=== PATIENT | male | born 1935 | race Caucasian/White ===

== ENCOUNTER 2017-07-26 13:52 | Inpatient (IN) | payer OTHER ==
[~2017-07-26] VITALS: Ht 185.4 cm; Wt 93.9 kg
[2017-07-26 13:52] VITALS: BP_SYST 130
[2017-07-26] MEDS ORDERED: NACL 0.9% 1,000 ML IV ONE (14:15)
[2017-07-26 14:25] LABS: BASOPHILS # (AUTO) 0.1 K/uL (0.0-0.2); BASOPHILS % (AUTO) 0.9 % (0.0-2.0); EOSINOPHILS # (AUTO) 0.1 K/uL (0.0-0.4); EOSINOPHILS % (AUTO) 1.8 % (0.0-4.0); HEMATOCRIT 45.1 % (36-54); HEMOGLOBIN 15.3 g/dL (14.0-18.0); LYMPHOCYTES # (AUTO) 1.7 K/uL (1.0-5.5); LYMPHOCYTES % (AUTO) 21.2 % (20.5-51.5); MEAN CORPUSCULAR HEMOGLOBIN 31 pg (27-31); MEAN CORPUSCULAR HGB CONC 34 % (32-36); MEAN CORPUSCULAR VOLUME 90 fL (79.0-98.0); MONOCYTES # (AUTO) 0.6 K/uL (0.0-1.0); MONOCYTES % (AUTO) 7.8 % (1.7-9.3); NEUTROPHILS # (AUTO) 5.7 K/uL (1.8-7.7); NEUTROPHILS % (AUTO) 68.3 % (40.0-70.0); PLATELET COUNT (AUTO) 335 K/uL (130-430); RED BLOOD CELL COUNT(AUTO) 4.99 MIL/uL (4.2-6.2); RED CELL DISTRIBUTION WIDTH 12.6 % (9.0-15.0); WHITE BLOOD COUNT (AUTO) 8.2 K/uL (4.8-10.8)
[2017-07-26 14:41] LABS: ANION GAP 9 (5-15); CALCIUM 8.9 mg/dL (8.4-11.0); CHLORIDE 100 mmol/L (98-107); CREATININE 1.77 mg/dL (0.55-1.30); GLUCOSE 105 mg/dL (70-99); POTASSIUM 3.8 mmol/L (3.5-5.1); SODIUM SERUM 135 mmol/L (136-145); UREA NITROGEN, BLOOD 13 mg/dL (8-21)
[2017-07-26 14:44] LABS: BILIRUBIN,URINE NEGATIVE (NEGATIVE); BLOOD, URINE NEGATIVE (NEGATIVE); CLARITY/URINE CLEAR (CLEAR); COLOR,URINE YELLOW (YELLOW); GLUCOSE,URINE NEGATIVE (NEGATIVE); KETONES,URINE NEGATIVE (NEGATIVE); LEUKOCYTE ESTERASE ,URINE NEGATIVE (NEGATIVE); NITRITE, URINE NEGATIVE (NEGATIVE); PROTEIN URINE TRACE (NEGATIVE); UROBILINOGEN,URINE 0.2 (0.2-1.0)
[2017-07-26 14:45] LABS: ALANINE AMINOTRANSFERASE 16 U/L (12-78); ALBUMIN 3.7 g/dL (3.4-4.8); ASPARTATE AMINOTRANSFERASE 25 U/L (10-37); LIPASE 128 U/L (73-393)
[2017-07-26 14:58] LABS: PROTHROMBIN TIME 9.8 SECS (9.5-12.5)
[2017-07-26] MEDS ORDERED: TAMS-11 PO (15:00)
[2017-07-26] MEDS ORDERED: LORA-259 PO (15:00)
[2017-07-26] MEDS ORDERED: LANS15CA5 PO (15:00)
[2017-07-26] MEDS ORDERED: PRAV20TA59 PO (15:00)
[2017-07-26] MEDS ORDERED: IBUP-1969 PO (15:00)
[2017-07-26] MEDS ORDERED: LEVO150T PO (15:00)
[2017-07-26] MEDS ORDERED: FINA5TAB3 PO (15:00)
[2017-07-26] MEDS ORDERED: ATEN100T44 PO (15:00)
[2017-07-26] MEDS ORDERED: BUSP10TA3 PO (15:00)
[2017-07-26 15:17] LABS: BACTERIA,URINE RARE /HPF (None Seen); MUCUS,URINE 1+ /LPF (None Seen); RBC,URINE NONE SEEN /HPF (0-3); WBC,URINE 0-3 /HPF (0-3)
[2017-07-26] MEDS ORDERED: ONDANSETRON HCL 4 MG/2 ML VIAL IVP ONE (15:30)
[2017-07-26] MEDS ORDERED: MORPHINE 4 MG/ML INJ. SYRINGE IVP ONE (15:30)
[2017-07-26] MEDS ORDERED: HEPARIN SODIUM,PORCINE 5000 UNITS/ML VIAL IVP ONE (16:00)
[2017-07-26 16:31] VITALS: BP_SYST 151
[2017-07-26] MEDS ORDERED: ENOXAPARIN SODIUM 60 MG/0.6 ML SYRINGE SUBCUT ONE (18:30)
[2017-07-26] MEDS ORDERED: THIAMINE HCL 100 MG TABLET PO ONE (18:30)
[2017-07-26] MEDS ORDERED: FOLIC ACID 1 MG TABLET PO ONE (18:30)
[2017-07-26 20:00] VITALS: BP_SYST 139
[2017-07-26] MEDS: PANTOPRAZOLE GRANULES PACKET 40 MG GT SCH (20:55)
[2017-07-26] MEDS: LORazepam 1 MG TABLET PO SCH (20:55)
[2017-07-26] MEDS ORDERED: SIMVASTATIN 10 MG TABLET PO SCH (21:00)
[2017-07-26 23:45] VITALS: BP_SYST 140
[2017-07-27 06:13] LABS: BASOPHILS # (AUTO) 0.1 K/uL (0.0-0.2); BASOPHILS % (AUTO) 0.9 % (0.0-2.0); EOSINOPHILS # (AUTO) 0.2 K/uL (0.0-0.4); EOSINOPHILS % (AUTO) 3.4 % (0.0-4.0); HEMATOCRIT 39.2 % (36-54); HEMOGLOBIN 13.4 g/dL (14.0-18.0); LYMPHOCYTES % (AUTO) 34.9 % (20.5-51.5); MEAN CORPUSCULAR HEMOGLOBIN 31 pg (27-31); MEAN CORPUSCULAR HGB CONC 34 % (32-36); MEAN CORPUSCULAR VOLUME 90 fL (79.0-98.0); MONOCYTES # (AUTO) 0.5 K/uL (0.0-1.0); MONOCYTES % (AUTO) 8.2 % (1.7-9.3); NEUTROPHILS # (AUTO) 2.9 K/uL (1.8-7.7); NEUTROPHILS % (AUTO) 52.6 % (40.0-70.0); PLATELET COUNT (AUTO) 246 K/uL (130-430); RED BLOOD CELL COUNT(AUTO) 4.34 MIL/uL (4.2-6.2); RED CELL DISTRIBUTION WIDTH 12.4 % (9.0-15.0); WHITE BLOOD COUNT (AUTO) 5.7 K/uL (4.8-10.8)
[2017-07-27 06:45] LABS: ALANINE AMINOTRANSFERASE 13 U/L (12-78); ALBUMIN 2.9 g/dL (3.4-4.8); ANION GAP 8 (5-15); ASPARTATE AMINOTRANSFERASE 22 U/L (10-37); CALCIUM 8.3 mg/dL (8.4-11.0); CHLORIDE 103 mmol/L (98-107); CHOLESTEROL 123 mg/dL (<200); CREATININE 1.67 mg/dL (0.55-1.30); GLUCOSE 78 mg/dL (70-99); HDL CHOLESTEROL 44 mg/dL (>45); LDL CHOLESTEROL 65 mg/dL (<100); LIPASE 102 U/L (73-393); POTASSIUM 3.3 mmol/L (3.5-5.1); SODIUM SERUM 137 mmol/L (136-145); THYROID STIMULATING HORMONE 8.35 uIu/mL (0.34-4.82); TOTAL BILIRUBIN 0.9 mg/dL (0.0-1.0); TRIGLYCERIDES 122 mg/dL (30-150); UREA NITROGEN, BLOOD 14 mg/dL (8-21)
[2017-07-27] MEDS ORDERED: LEVOTHYROXINE SODIUM 0.15 MG TABLET PO SCH (07:00)
[2017-07-27] MEDS ORDERED: NACL 0.9% 1,000 ML IV SCH (08:00)
[2017-07-27] MEDS ORDERED: POTASSIUM CHLORIDE 20 MEQ TAB.PRT.SR PO ONE (08:00)
[2017-07-27 08:01] VITALS: BP_SYST 134
[2017-07-27] MEDS: LORazepam 1 MG TABLET PO SCH (08:47)
[2017-07-27] MEDS: PANTOPRAZOLE GRANULES PACKET 40 MG GT SCH (08:48)
[2017-07-27] MEDS ORDERED: PRAVASTATIN SODIUM 20 MG TABLET (PRAVACHOL) PO SCH (09:00)
[2017-07-27] MEDS ORDERED: FINASTERIDE 5 MG TABLET (PROSCAR) PO SCH (09:00)
[2017-07-27] MEDS ORDERED: ASPIRIN 81 MG TAB.CHEW PO SCH (09:00)
[2017-07-27] MEDS ORDERED: FOLIC ACID 1 MG TABLET PO SCH (09:00)
[2017-07-27] MEDS ORDERED: busPIRone HCL 5 MG TABLET PO SCH (09:00)
[2017-07-27] MEDS ORDERED: ATENOLOL 50 MG TABLET (TENORMIN) PO SCH (09:00)
[2017-07-27] MEDS ORDERED: THIAMINE HCL 100 MG TABLET PO SCH (09:00)
[2017-07-27] MEDS ORDERED: TAMSULOSIN HCL 0.4 MG CAP PO SCH (09:00)
[2017-07-27 11:22] VITALS: BP_SYST 134
[2017-07-27 12:00] VITALS: BP_SYST 116
== END 2017-07-27 12:13 | disposition short-term general hospital (02) | DRG 280 ==
LOC: SED 13:52 → STU 15:44
PROVIDERS: ADMIT Internal Medicine Hospice and Palliative Medicine; ATTEND Internal Medicine Hospice and Palliative Medicine
DX: I21.4 Non-ST elevation (NSTEMI) myocardial infarction (principal); I50.21 Acute systolic (congestive) heart failure; N18.4 Chronic kidney disease, stage 4 (severe); N17.9 Acute kidney failure, unspecified; E87.1 Hypo-osmolality and hyponatremia; I13.0 Hypertensive heart and chronic kidney disease with heart failure and stage 1 through stage 4 chronic kidney disease, or unspecified chronic kidney disease; N28.1 Cyst of kidney, acquired; K29.70 Gastritis, unspecified, without bleeding; E03.9 Hypothyroidism, unspecified; E78.5 Hyperlipidemia, unspecified; F10.20 Alcohol dependence, uncomplicated; F17.200 Nicotine dependence, unspecified, uncomplicated; I71.4 Abdominal aortic aneurysm, without rupture; N40.0 Benign prostatic hyperplasia without lower urinary tract symptoms; K59.00 Constipation, unspecified; Y90.9 Presence of alcohol in blood, level not specified; K21.9 Gastro-esophageal reflux disease without esophagitis; Z90.89 Acquired absence of other organs; Z86.73 Personal history of transient ischemic attack (TIA), and cerebral infarction without residual deficits; Z79.899 Other long term (current) drug therapy
CPT/HCPCS: 36415; 71045; 80053; 80061; 81000-TC; 83690-TC; 83880; 84443-TC; 84484; 85025; 85610-TC; 85730-TC; 93005; 93306; 96361; 96374; 96375; 99285; J1644; J1650; J2270; J2405; J7030

== ENCOUNTER 2019-01-04 11:18 | Inpatient (IN) | payer OTHER ==
[~2019-01-04] VITALS: Ht 188 cm; Wt 86.6 kg
[2019-01-04 11:18] VITALS: BP_SYST 101
[~2019-01-04 11:18] MED LIST: ATEN-168 PO; BUSP10TA3 PO; FINA5TAB3 PO; LANS15CA14 PO; LEVO150T PO; LORA-259 PO; PRAV20TA59 PO; TAMS-11 PO
[2019-01-04] MEDS ORDERED: NACL 0.9% 1,000 ML IV ONE (12:00)
[2019-01-04] MEDS ORDERED: IPRATROPIUM/ALBUTEROL SULFATE 3 ML AMPUL.NEB (DUONEB) INH ONE ×2 (12:00→14:00)
[2019-01-04 12:16] LABS: BASOPHILS % (AUTO) 0.3 % (0.0-2.0); EOSINOPHILS % (AUTO) 0.3 % (0.0-4.0); HEMATOCRIT 42.5 % (36-54); HEMOGLOBIN 14.3 g/dL (14.0-18.0); LYMPHOCYTES # (AUTO) 0.4 K/uL (1.0-5.5); LYMPHOCYTES % (AUTO) 4.6 % (20.5-51.5); MEAN CORPUSCULAR HEMOGLOBIN 28 pg (27-31); MEAN CORPUSCULAR HGB CONC 34 % (32-36); MEAN CORPUSCULAR VOLUME 84 fL (79.0-98.0); MONOCYTES # (AUTO) 0.6 K/uL (0.0-1.0); MONOCYTES % (AUTO) 6.3 % (1.7-9.3); NEUTROPHILS # (AUTO) 8.5 K/uL (1.8-7.7); NEUTROPHILS % (AUTO) 88.5 % (40.0-70.0); PLATELET COUNT (AUTO) 373 K/uL (130-430); RED BLOOD CELL COUNT(AUTO) 5.04 MIL/uL (4.2-6.2); RED CELL DISTRIBUTION WIDTH 15.2 % (9.0-15.0); WHITE BLOOD COUNT (AUTO) 9.6 K/uL (4.8-10.8)
[2019-01-04 12:31] LABS: ANION GAP 8 (5-15); CALCIUM 8.2 mg/dL (8.4-11.0); CHLORIDE 102 mmol/L (98-107); GLUCOSE 111 mg/dL (70-99); PROTHROMBIN TIME 10.5 SECS (9.5-12.5); SODIUM SERUM 131 mmol/L (136-145); UREA NITROGEN, BLOOD 20 mg/dL (8-21)
[2019-01-04 12:36] LABS: ALANINE AMINOTRANSFERASE 18 U/L (12-78); ALBUMIN 2.9 g/dL (3.4-4.8); ASPARTATE AMINOTRANSFERASE 22 U/L (10-37); POTASSIUM 4.2 mmol/L (3.5-5.1); TOTAL BILIRUBIN 0.9 mg/dL (0.0-1.0)
[2019-01-04] MEDS ORDERED: PREDNISONE 20 MG TABLET PO ONE (14:30)
[2019-01-04] MEDS ORDERED: CLOP75TA32 PO (16:26)
[2019-01-04] MEDS ORDERED: LISI10TA5 PO (16:26)
[2019-01-04] MEDS ORDERED: ALBU8.5H8 INH (16:26)
[2019-01-04] MEDS ORDERED: LIP40 PO (16:26)
[2019-01-04] MEDS ORDERED: VENL37.55 PO (16:26)
[2019-01-04] MEDS ORDERED: IPRATROPIUM/ALBUTEROL SULFATE 3 ML AMPUL.NEB (DUONEB) INH PRN (16:45)
[2019-01-04 17:26] VITALS: BP_SYST 163
[2019-01-04] MEDS ORDERED: FLU VACC TS2019(65UP)/MF59C/PF 45 MCG/0.5 ML SYRINGE I.M. PRN (17:45)
[2019-01-04 17:56] VITALS: BP_SYST 163
[2019-01-04] MEDS ORDERED: cloNIDine HCL 0.1 MG TABLET ONE (19:09)
[2019-01-04] MEDS: cloNIDine HCL 0.1 MG TABLET PO PRN (19:52)
[2019-01-04 21:02] VITALS: BP_SYST 106
[2019-01-04] MEDS: methylPREDNISolone SOD SUCC 40 MG/ML VIAL IVP SCH (22:31)
[2019-01-04] MEDS: IPRATROPIUM/ALBUTEROL SULFATE 3 ML AMPUL.NEB (DUONEB) INH SCH (23:55)
[2019-01-05 00:18] VITALS: BP_SYST 124
[2019-01-05] MEDS: cloNIDine HCL 0.1 MG TABLET PO PRN (01:54)
[2019-01-05] MEDS: IPRATROPIUM/ALBUTEROL SULFATE 3 ML AMPUL.NEB (DUONEB) INH SCH ×5 (03:00→23:03)
[2019-01-05 04:57] VITALS: BP_SYST 125
[2019-01-05] MEDS: methylPREDNISolone SOD SUCC 40 MG/ML VIAL IVP SCH ×3 (07:19→21:19)
[2019-01-05 08:04] VITALS: BP_SYST 126
[2019-01-05] MEDS ORDERED: LEVOFLOXACIN 500 MG/D5W 100 ML IV SCH (09:00)
[2019-01-05 12:00] VITALS: BP_SYST 146
[2019-01-05] MEDS: cefTRIAXone 1 GM in D5W 50 ML IV SCH (13:10)
[2019-01-05 14:38] VITALS: BP_SYST 147
[2019-01-05] MEDS: MONTELUKAST 10 MG TABLET PO SCH (17:04)
[2019-01-05 19:50] VITALS: BP_SYST 125
[2019-01-05] MEDS: BUDESONIDE 0.5 MG/2 ML AMPUL.NEB INH SCH (21:00)
[2019-01-05] MEDS: busPIRone HCL 5 MG TABLET PO SCH (21:19)
[2019-01-05] MEDS: guaiFENesin ER 600 MG TAB PO SCH (21:19)
[2019-01-05 21:42] LABS: BILIRUBIN,URINE NEGATIVE (NEGATIVE); CLARITY/URINE OTHER (CLEAR); COLOR,URINE YELLOW (YELLOW); GLUCOSE,URINE NEGATIVE (NEGATIVE); KETONES,URINE NEGATIVE (NEGATIVE); LEUKOCYTE ESTERASE ,URINE 1+ (NEGATIVE); NITRITE, URINE NEGATIVE (NEGATIVE); PH,URINE 5.5 (5.0-8.0); PROTEIN URINE NEGATIVE (NEGATIVE); UROBILINOGEN,URINE 0.2 (0.2-1.0)
[2019-01-05 22:11] LABS: BLOOD, URINE TRACE (NEGATIVE)
[2019-01-05 22:15] LABS: WBC,URINE 50-80 /HPF (0-3)
[2019-01-05 22:16] LABS: BACTERIA,URINE FEW /HPF (None Seen); MUCUS,URINE None Seen /LPF (None Seen)
[2019-01-06 00:09] VITALS: BP_SYST 137
[2019-01-06] MEDS: IPRATROPIUM/ALBUTEROL SULFATE 3 ML AMPUL.NEB (DUONEB) INH SCH ×6 (04:02→23:09)
[2019-01-06 05:53] LABS: BASOPHILS % (AUTO) 0.1 % (0.0-2.0); HEMATOCRIT 38.6 % (36-54); LYMPHOCYTES # (AUTO) 0.5 K/uL (1.0-5.5); LYMPHOCYTES % (AUTO) 4.3 % (20.5-51.5); MEAN CORPUSCULAR HEMOGLOBIN 28 pg (27-31); MEAN CORPUSCULAR HGB CONC 34 % (32-36); MEAN CORPUSCULAR VOLUME 84 fL (79.0-98.0); MONOCYTES # (AUTO) 0.4 K/uL (0.0-1.0); MONOCYTES % (AUTO) 3.6 % (1.7-9.3); NEUTROPHILS # (AUTO) 9.6 K/uL (1.8-7.7); PLATELET COUNT (AUTO) 333 K/uL (130-430); RED CELL DISTRIBUTION WIDTH 15.3 % (9.0-15.0); WHITE BLOOD COUNT (AUTO) 10.5 K/uL (4.8-10.8)
[2019-01-06] MEDS: LEVOTHYROXINE SODIUM 0.15 MG TABLET PO SCH (06:17)
[2019-01-06] MEDS: methylPREDNISolone SOD SUCC 40 MG/ML VIAL IVP SCH ×3 (06:17→21:52)
[2019-01-06 06:52] LABS: ALANINE AMINOTRANSFERASE 14 U/L (12-78); ANION GAP 11 (5-15); ASPARTATE AMINOTRANSFERASE 35 U/L (10-37); CHLORIDE 101 mmol/L (98-107); POTASSIUM 4.2 mmol/L (3.5-5.1); SODIUM SERUM 133 mmol/L (136-145); TOTAL BILIRUBIN 0.4 mg/dL (0.0-1.0)
[2019-01-06 07:45] LABS: CALCIUM 8.7 mg/dL (8.4-11.0); CREATININE 1.71 mg/dL (0.55-1.30); GLUCOSE 137 mg/dL (70-99); UREA NITROGEN, BLOOD 34 mg/dL (8-21)
[2019-01-06 07:50] VITALS: BP_SYST 147
[2019-01-06] MEDS: BUDESONIDE 0.5 MG/2 ML AMPUL.NEB INH SCH ×2 (07:50→20:21)
[2019-01-06] MEDS: Effexor XR 37.5 MG PO SCH (08:34)
[2019-01-06] MEDS: AZITHROMYCIN 250 MG TABLET PO SCH (08:35)
[2019-01-06] MEDS: CLOPIDOGREL BISULFATE 75 MG TABLET PO SCH (08:35)
[2019-01-06] MEDS: busPIRone HCL 5 MG TABLET PO SCH ×2 (08:35→20:16)
[2019-01-06] MEDS: NICOTINE 14 MG/24 HR PATCH.TD24 TD SCH (08:35)
[2019-01-06] MEDS: FOLIC ACID 1 MG TABLET PO SCH (08:35)
[2019-01-06] MEDS: TAMSULOSIN HCL 0.4 MG CAP PO SCH (08:36)
[2019-01-06] MEDS: THIAMINE HCL 100 MG TABLET GT SCH (08:36)
[2019-01-06] MEDS: guaiFENesin ER 600 MG TAB PO SCH ×2 (08:36→20:17)
[2019-01-06] MEDS: ATORVASTATIN 20 MG TABLET PO SCH (08:36)
[2019-01-06] MEDS: LISINOPRIL 10 MG TABLET (PRINIVIL) PO SCH (08:37)
[2019-01-06] MEDS: ENOXAPARIN SODIUM 40 MG/0.4 ML SYRINGE SUBCUT SCH (08:43)
[2019-01-06] MEDS: DILTIAZEM HCL 30 MG TABLET PO SCH ×3 (08:58→23:25)
[2019-01-06] MEDS: cefTRIAXone 1 GM in D5W 50 ML IV SCH (12:10)
[2019-01-06 12:43] VITALS: BP_SYST 120
[2019-01-06 17:19] VITALS: BP_SYST 121
[2019-01-06] MEDS: MONTELUKAST 10 MG TABLET PO SCH (17:23)
[2019-01-06 19:30] VITALS: BP_SYST 111
[2019-01-07 00:06] VITALS: BP_SYST 121
[2019-01-07] MEDS: IPRATROPIUM/ALBUTEROL SULFATE 3 ML AMPUL.NEB (DUONEB) INH SCH ×7 (03:00→23:18)
[2019-01-07] MEDS: LEVOTHYROXINE SODIUM 0.15 MG TABLET PO SCH (06:19)
[2019-01-07] MEDS: DILTIAZEM HCL 30 MG TABLET PO SCH ×3 (06:21→17:28)
[2019-01-07] MEDS: methylPREDNISolone SOD SUCC 40 MG/ML VIAL IVP SCH ×3 (06:22→22:55)
[2019-01-07 07:15] VITALS: BP_SYST 131
[2019-01-07] MEDS: BUDESONIDE 0.5 MG/2 ML AMPUL.NEB INH SCH ×2 (07:16→19:57)
[2019-01-07] MEDS: ENOXAPARIN SODIUM 40 MG/0.4 ML SYRINGE SUBCUT SCH (09:00)
[2019-01-07] MEDS: CLOPIDOGREL BISULFATE 75 MG TABLET PO SCH (09:00)
[2019-01-07] MEDS: ATORVASTATIN 20 MG TABLET PO SCH (09:33)
[2019-01-07] MEDS: busPIRone HCL 5 MG TABLET PO SCH ×2 (09:33→21:49)
[2019-01-07] MEDS: Effexor XR 37.5 MG PO SCH (09:34)
[2019-01-07] MEDS: AZITHROMYCIN 250 MG TABLET PO SCH (09:34)
[2019-01-07] MEDS: guaiFENesin ER 600 MG TAB PO SCH ×2 (09:34→21:49)
[2019-01-07] MEDS: TAMSULOSIN HCL 0.4 MG CAP PO SCH (09:34)
[2019-01-07] MEDS: NICOTINE 14 MG/24 HR PATCH.TD24 TD SCH (09:34)
[2019-01-07] MEDS: FOLIC ACID 1 MG TABLET PO SCH (09:34)
[2019-01-07] MEDS: LISINOPRIL 10 MG TABLET (PRINIVIL) PO SCH (09:34)
[2019-01-07] MEDS: THIAMINE HCL 100 MG TABLET GT SCH (09:34)
[2019-01-07 12:55] VITALS: BP_SYST 126
[2019-01-07] MEDS: cefTRIAXone 1 GM in D5W 50 ML IV SCH (13:14)
[2019-01-07 14:03] LABS: APPEARANCE,SPUN,BODY FLUID CLEAR (CLEAR); BF APPEARANCE UNSPUN SLIGHTLY HAZY (CLEAR); BODY FLUID COLOR YELLOW (LT YELLOW); BODY FLUID SOURCE/ TYPE OTHER; BODY FLUID TOTAL VOLUME 1025 mL; SOURCE/TYPE ,BODY FLUID THORACENTESIS
[2019-01-07 14:04] LABS: LYMPHOCYTES, BODY FLUID 80 %; MONOCYTES,BODY FLUID 5 %; NEUTROPHIL, BODY FLUID 15 %; RBC, BODY FLUID 598 /uL; WBC, BODY FLUID 14 /uL
[2019-01-07 16:23] VITALS: BP_SYST 121
[2019-01-07] MEDS: MONTELUKAST 10 MG TABLET PO SCH (17:27)
[2019-01-07 17:32] LABS: BODY FLUID GLUCOSE 135 mg/dL
[2019-01-07 17:33] LABS: BODY FLUID TOTAL PROTEIN 3.9 g/dL
[2019-01-07 21:39] VITALS: BP_SYST 115
[2019-01-08] MEDS: DILTIAZEM HCL 30 MG TABLET PO SCH ×2 (00:27→06:32)
[2019-01-08 02:54] VITALS: BP_SYST 113
[2019-01-08] MEDS: methylPREDNISolone SOD SUCC 40 MG/ML VIAL IVP SCH (06:33)
[2019-01-08] MEDS: LEVOTHYROXINE SODIUM 0.15 MG TABLET PO SCH (06:33)
[2019-01-08 07:30] VITALS: BP_SYST 128
[2019-01-08] MEDS: IPRATROPIUM/ALBUTEROL SULFATE 3 ML AMPUL.NEB (DUONEB) INH SCH (07:53)
[2019-01-08] MEDS: BUDESONIDE 0.5 MG/2 ML AMPUL.NEB INH SCH (07:53)
[2019-01-08] MEDS: FOLIC ACID 1 MG TABLET PO SCH (09:40)
[2019-01-08] MEDS: AZITHROMYCIN 250 MG TABLET PO SCH (09:40)
[2019-01-08] MEDS: guaiFENesin ER 600 MG TAB PO SCH (09:40)
[2019-01-08] MEDS: busPIRone HCL 5 MG TABLET PO SCH (09:41)
[2019-01-08] MEDS: LISINOPRIL 10 MG TABLET (PRINIVIL) PO SCH (09:44)
[2019-01-08] MEDS: TAMSULOSIN HCL 0.4 MG CAP PO SCH (09:44)
[2019-01-08] MEDS: CLOPIDOGREL BISULFATE 75 MG TABLET PO SCH (09:44)
[2019-01-08] MEDS: THIAMINE HCL 100 MG TABLET GT SCH (09:44)
[2019-01-08] MEDS: ENOXAPARIN SODIUM 40 MG/0.4 ML SYRINGE SUBCUT SCH (09:46)
[2019-01-08] MEDS: Effexor XR 37.5 MG PO SCH (09:48)
[2019-01-08] MEDS: NICOTINE 14 MG/24 HR PATCH.TD24 TD SCH (09:49)
[2019-01-08] MEDS: ATORVASTATIN 20 MG TABLET PO SCH (10:00)
[2019-01-08] MEDS ORDERED: PRED20TA PO (10:58)
[2019-01-08] MEDS ORDERED: AMOX-426 PO (10:59)
[2019-01-08 11:28] VITALS: BP_SYST 128
[2019-01-08 12:08] VITALS: BP_SYST 118
[2019-01-08 12:18] VITALS: BP_SYST 117
[2019-01-08] MEDS ORDERED: PREDNISONE 20 MG TABLET PO SCH (18:00)
== END 2019-01-08 12:55 | disposition home or self-care (01) | DRG 682 ==
LOC: SED 11:18 → STU 16:34
PROVIDERS: ADMIT Internal Medicine Hospice and Palliative Medicine; ATTEND Internal Medicine Hospice and Palliative Medicine
PROC: 0W9B3ZZ Drainage of Left Pleural Cavity, Percutaneous Approach (ICD-10-PCS; principal; 2019-01-07)
DX: N17.9 Acute kidney failure, unspecified (principal); J18.9 Pneumonia, unspecified organism; J44.1 Chronic obstructive pulmonary disease with (acute) exacerbation; E87.1 Hypo-osmolality and hyponatremia; J91.8 Pleural effusion in other conditions classified elsewhere; J44.0 Chronic obstructive pulmonary disease with (acute) lower respiratory infection; N40.0 Benign prostatic hyperplasia without lower urinary tract symptoms; I25.10 Atherosclerotic heart disease of native coronary artery without angina pectoris; F17.210 Nicotine dependence, cigarettes, uncomplicated; I10 Essential (primary) hypertension; E03.9 Hypothyroidism, unspecified; E78.5 Hyperlipidemia, unspecified; Z95.5 Presence of coronary angioplasty implant and graft; Z79.899 Other long term (current) drug therapy
CPT/HCPCS: 32555; 36415; 36600; 71045; 71046-TC; 71250-TC; 80053; 81000-TC; 82803-TC; 82947-TC; 83605; 83615-TC; 83880; 84157-TC; 84484; 85025; 85610-TC; 85730-TC; 87040-TC; 87070-TC; 87086; 87101; 87116; 88108; 88305; 88313; 88341; 88342; 89051-TC; 89060-TC; 93005; 94640; 94760; 96361; 96374; 97116-GP; 97530-GP; 99285; C1729; G0378; J0696; J1030; J1650; J1956; J2930; J7060; J7512; J7620; J7626; Q0144

== ENCOUNTER 2019-01-22 12:10 | Inpatient (IN) | payer OTHER ==
[~2019-01-22] VITALS: Ht 182.9 cm; Wt 83.9 kg
[~2019-01-22 12:10] MED LIST changes: +ALBU8.5H8 INH; +AMOX-426 PO; -ATEN-168 PO; +CLOP75TA32 PO; -FINA5TAB3 PO; -LANS15CA14 PO; +LIP40 PO; +LISI10TA5 PO; -LORA-259 PO; -PRAV20TA59 PO; +PRED20TA PO; +VENL37.55 PO
[2019-01-22 12:19] VITALS: BP_SYST 124
[2019-01-22] MEDS ORDERED: IPRATROPIUM/ALBUTEROL SULFATE 3 ML AMPUL.NEB (DUONEB) INH ONE (12:45)
[2019-01-22 13:08] LABS: BASOPHILS # (AUTO) 0.1 K/uL (0.0-0.2); BASOPHILS % (AUTO) 0.9 % (0.0-2.0); EOSINOPHILS # (AUTO) 0.1 K/uL (0.0-0.4); HEMOGLOBIN 11.7 g/dL (14.0-18.0); LYMPHOCYTES # (AUTO) 1.3 K/uL (1.0-5.5); LYMPHOCYTES % (AUTO) 12.8 % (20.5-51.5); MEAN CORPUSCULAR HEMOGLOBIN 29 pg (27-31); MEAN CORPUSCULAR HGB CONC 34 % (32-36); MEAN CORPUSCULAR VOLUME 85 fL (79.0-98.0); MONOCYTES # (AUTO) 0.6 K/uL (0.0-1.0); MONOCYTES % (AUTO) 5.9 % (1.7-9.3); NEUTROPHILS % (AUTO) 79.4 % (40.0-70.0); PLATELET COUNT (AUTO) 286 K/uL (130-430); RED BLOOD CELL COUNT(AUTO) 4.11 MIL/uL (4.2-6.2); RED CELL DISTRIBUTION WIDTH 15.8 % (9.0-15.0); WHITE BLOOD COUNT (AUTO) 10.1 K/uL (4.8-10.8)
[2019-01-22 13:14] LABS: ANION GAP 7 (5-15); CALCIUM 7.6 mg/dL (8.4-11.0); CHLORIDE 105 mmol/L (98-107); CREATININE 1.48 mg/dL (0.55-1.30); GLUCOSE 98 mg/dL (70-99); POTASSIUM 4.8 mmol/L (3.5-5.1); SODIUM SERUM 134 mmol/L (136-145); UREA NITROGEN, BLOOD 49 mg/dL (8-21)
[2019-01-22 13:18] LABS: PROTHROMBIN TIME 9.9 SECS (9.5-12.5)
[2019-01-22 13:19] LABS: ALANINE AMINOTRANSFERASE 39 U/L (12-78); ALBUMIN 2.7 g/dL (3.4-4.8); ASPARTATE AMINOTRANSFERASE 23 U/L (10-37); TOTAL BILIRUBIN 0.9 mg/dL (0.0-1.0)
[2019-01-22] MEDS ORDERED: COR6.25 PO (13:32)
[2019-01-22] MEDS ORDERED: PRO40 PO (13:32)
[2019-01-22 13:55] LABS: BILIRUBIN,URINE NEGATIVE (NEGATIVE); BLOOD, URINE NEGATIVE (NEGATIVE); CLARITY/URINE CLEAR (CLEAR); COLOR,URINE YELLOW (YELLOW); GLUCOSE,URINE NEGATIVE (NEGATIVE); KETONES,URINE NEGATIVE (NEGATIVE); LEUKOCYTE ESTERASE ,URINE TRACE (NEGATIVE); NITRITE, URINE NEGATIVE (NEGATIVE); PH,URINE 5.5 (5.0-8.0); PROTEIN URINE NEGATIVE (NEGATIVE); UROBILINOGEN,URINE 0.2 (0.2-1.0)
[2019-01-22 14:00] LABS: BACTERIA,URINE FEW /HPF (None Seen); RBC,URINE 0-3 /HPF (0-3)
[2019-01-22 14:18] LABS: HEMATOCRIT 30.8 % (36-54); HEMOGLOBIN 10.3 g/dL (14.0-18.0)
[2019-01-22 14:30] VITALS: BP_SYST 102
[2019-01-22] MEDS ORDERED: IPRATROPIUM BROM 0.5 MG/2.5 ML VIAL.NEB (ATROVENT) INH PRN (14:30)
[2019-01-22] MEDS ORDERED: ALBUTEROL SULFATE 0.083% 2.5 MG/3 ML VIAL.NEB INH PRN (14:30)
[2019-01-22 14:59] VITALS: BP_SYST 102
[2019-01-22] MEDS ORDERED: PANTOPRAZOLE SODIUM 40 MG/VIAL (PROTONIX) IVP ONE ×2 (15:00→21:00)
[2019-01-22] MEDS: ALBUTEROL SULFATE 0.083% 2.5 MG/3 ML VIAL.NEB INH SCH ×4 (15:00→23:22)
[2019-01-22] MEDS: IPRATROPIUM BROM 0.5 MG/2.5 ML VIAL.NEB (ATROVENT) INH SCH ×3 (15:29→23:22)
[2019-01-22 15:39] VITALS: BP_SYST 102
[2019-01-22] MEDS: NACL 0.9% 1,000 ML IV SCH (15:43)
[2019-01-22 16:20] VITALS: BP_SYST 118
[2019-01-22] MEDS ORDERED: GOLYTELY / COLYTE SOLUTION 4 LITERS PO ONE (18:00)
[2019-01-22 20:00] VITALS: BP_SYST 128
[2019-01-22 20:09] LABS: HEMATOCRIT 30.5 % (36-54); HEMOGLOBIN 10.2 g/dL (14.0-18.0)
[2019-01-22] MEDS: CARVEDILOL 6.25 MG TABLET (COREG) PO SCH (21:00)
[2019-01-22] MEDS: PANTOPRAZOLE SODIUM 40 MG/VIAL (PROTONIX) IVP SCH (21:47)
[2019-01-22] MEDS: busPIRone HCL 5 MG TABLET PO SCH (21:48)
[2019-01-23] MEDS: NACL 0.9% 1,000 ML IV SCH ×4 (00:30→20:30)
[2019-01-23 01:16] VITALS: BP_SYST 119
[2019-01-23] MEDS: ALBUTEROL SULFATE 0.083% 2.5 MG/3 ML VIAL.NEB INH SCH ×6 (03:00→23:00)
[2019-01-23] MEDS: IPRATROPIUM BROM 0.5 MG/2.5 ML VIAL.NEB (ATROVENT) INH SCH ×6 (03:15→23:06)
[2019-01-23 06:15] LABS: BASOPHILS % (AUTO) 0.9 % (0.0-2.0); EOSINOPHILS # (AUTO) 0.1 K/uL (0.0-0.4); EOSINOPHILS % (AUTO) 2.1 % (0.0-4.0); HEMATOCRIT 25.3 % (36-54); HEMOGLOBIN 8.6 g/dL (14.0-18.0); LYMPHOCYTES # (AUTO) 1.2 K/uL (1.0-5.5); LYMPHOCYTES % (AUTO) 22.9 % (20.5-51.5); MEAN CORPUSCULAR HEMOGLOBIN 29 pg (27-31); MEAN CORPUSCULAR HGB CONC 34 % (32-36); MEAN CORPUSCULAR VOLUME 85 fL (79.0-98.0); MONOCYTES # (AUTO) 0.4 K/uL (0.0-1.0); MONOCYTES % (AUTO) 7.5 % (1.7-9.3); NEUTROPHILS # (AUTO) 3.5 K/uL (1.8-7.7); NEUTROPHILS % (AUTO) 66.6 % (40.0-70.0); PLATELET COUNT (AUTO) 212 K/uL (130-430); RED BLOOD CELL COUNT(AUTO) 2.99 MIL/uL (4.2-6.2); RED CELL DISTRIBUTION WIDTH 15.3 % (9.0-15.0)
[2019-01-23 06:27] LABS: PROTHROMBIN TIME 10.3 SECS (9.5-12.5)
[2019-01-23 06:28] LABS: ANION GAP 4 (5-15); CALCIUM 7.4 mg/dL (8.4-11.0); CHLORIDE 109 mmol/L (98-107); CREATININE 1.63 mg/dL (0.55-1.30); GLUCOSE 95 mg/dL (70-99); SODIUM SERUM 137 mmol/L (136-145); UREA NITROGEN, BLOOD 38 mg/dL (8-21); WHITE BLOOD COUNT (AUTO) 5.3 K/uL (4.8-10.8)
[2019-01-23] MEDS: LEVOTHYROXINE SODIUM 0.15 MG TABLET PO SCH (07:00)
[2019-01-23 07:45] VITALS: BP_SYST 114
[2019-01-23] MEDS ORDERED: PANTOPRAZOLE SODIUM 40 MG TAB PO SCH (09:00)
[2019-01-23] MEDS: PANTOPRAZOLE SODIUM 40 MG/VIAL (PROTONIX) IVP SCH ×2 (10:07→21:45)
[2019-01-23] MEDS: TAMSULOSIN HCL 0.4 MG CAP PO SCH (10:08)
[2019-01-23] MEDS: CARVEDILOL 6.25 MG TABLET (COREG) PO SCH ×2 (10:08→21:00)
[2019-01-23] MEDS: busPIRone HCL 5 MG TABLET PO SCH ×2 (10:09→21:46)
[2019-01-23] MEDS: Effexor XR 37.5 MG PO SCH (10:09)
[2019-01-23] MEDS: ATORVASTATIN 20 MG TABLET PO SCH (10:09)
[2019-01-23 12:10] VITALS: BP_SYST 142
[2019-01-23] MEDS: MIDAZOLAM HCL 5 MG/5 ML VIAL ONE ×3 (14:27→14:57)
[2019-01-23] MEDS: MEPERIDINE HCL/PF 100 MG/ML AMP ONE ×2 (14:27→14:29)
[2019-01-23] MEDS ORDERED: SIMETHICONE 40 MG/0.6 ML ML ONE (15:34)
[2019-01-23 16:00] VITALS: BP_SYST 104
[2019-01-23 16:16] LABS: HEMATOCRIT 22.7 % (36-54); HEMOGLOBIN 7.7 g/dL (14.0-18.0)
[2019-01-23] MEDS ORDERED: BISACODYL 5 MG TABLET.DR (DULCOLAX) PO ONE (17:00)
[2019-01-23 20:00] VITALS: BP_SYST 95
[2019-01-23 20:30] LABS: HEMOGLOBIN 6.9 g/dL (14.0-18.0)
[2019-01-24] VITALS (22 sets, daily range): BP systolic 96–148
[2019-01-24] MEDS: ALBUTEROL SULFATE 0.083% 2.5 MG/3 ML VIAL.NEB INH SCH ×6 (03:00→23:00)
[2019-01-24] MEDS: IPRATROPIUM BROM 0.5 MG/2.5 ML VIAL.NEB (ATROVENT) INH SCH ×6 (03:00→23:00)
[2019-01-24] MEDS: LEVOTHYROXINE SODIUM 0.15 MG TABLET PO SCH (06:02)
[2019-01-24] MEDS: NACL 0.9% 1,000 ML IV SCH ×2 (06:30→20:20)
[2019-01-24] MEDS ORDERED: PANTOPRAZOLE SODIUM 40 MG/VIAL (PROTONIX) ONE (07:10)
[2019-01-24] MEDS: PANTOPRAZOLE SODIUM 40 MG in NS 50 ML IV SCH ×4 (07:25→23:05)
[2019-01-24 09:51] LABS: BASOPHILS # (AUTO) 0.1 K/uL (0.0-0.2); BASOPHILS % (AUTO) 0.9 % (0.0-2.0); EOSINOPHILS # (AUTO) 0.1 K/uL (0.0-0.4); EOSINOPHILS % (AUTO) 1.7 % (0.0-4.0); HEMATOCRIT 25.4 % (36-54); HEMOGLOBIN 8.8 g/dL (14.0-18.0); LYMPHOCYTES # (AUTO) 0.9 K/uL (1.0-5.5); LYMPHOCYTES % (AUTO) 14.6 % (20.5-51.5); MEAN CORPUSCULAR HEMOGLOBIN 30 pg (27-31); MEAN CORPUSCULAR HGB CONC 35 % (32-36); MEAN CORPUSCULAR VOLUME 86 fL (79.0-98.0); MONOCYTES # (AUTO) 0.3 K/uL (0.0-1.0); MONOCYTES % (AUTO) 5.7 % (1.7-9.3); NEUTROPHILS # (AUTO) 4.6 K/uL (1.8-7.7); NEUTROPHILS % (AUTO) 77.1 % (40.0-70.0); PLATELET COUNT (AUTO) 175 K/uL (130-430); RED BLOOD CELL COUNT(AUTO) 2.95 MIL/uL (4.2-6.2); RED CELL DISTRIBUTION WIDTH 14.9 % (9.0-15.0)
[2019-01-24 10:04] LABS: ANION GAP 5 (5-15); CALCIUM 7.2 mg/dL (8.4-11.0); CHLORIDE 108 mmol/L (98-107); CREATININE 1.67 mg/dL (0.55-1.30); GLUCOSE 98 mg/dL (70-99); POTASSIUM 4.3 mmol/L (3.5-5.1); SODIUM SERUM 136 mmol/L (136-145); UREA NITROGEN, BLOOD 39 mg/dL (8-21)
[2019-01-24] MEDS ORDERED: MIDAZOLAM HCL 5 MG/5 ML VIAL ONE (12:11)
[2019-01-24] MEDS ORDERED: MEPERIDINE HCL/PF 100 MG/ML AMP ONE (12:11)
[2019-01-24] MEDS ORDERED: EPINEPHrine JECT 0.1 MG/ML SYR ONE (12:52)
[2019-01-24] MEDS ORDERED: PANTOPRAZOLE SODIUM 80 MG in NS 100 ML IV ONE (13:15)
[2019-01-24] MEDS: busPIRone HCL 5 MG TABLET PO SCH ×2 (15:06→20:11)
[2019-01-24] MEDS: ATORVASTATIN 20 MG TABLET PO SCH (15:06)
[2019-01-24] MEDS: CARVEDILOL 6.25 MG TABLET (COREG) PO SCH ×2 (15:07→20:11)
[2019-01-24] MEDS: TAMSULOSIN HCL 0.4 MG CAP PO SCH (15:07)
[2019-01-24] MEDS: Effexor XR 37.5 MG PO SCH (15:08)
[2019-01-24 22:02] LABS: HEMOGLOBIN 7.8 g/dL (14.0-18.0)
[2019-01-24 22:14] LABS: HEMATOCRIT 21.8 % (36-54)
[2019-01-25] VITALS (24 sets, daily range): BP systolic 92–137
[2019-01-25] MEDS: ALBUTEROL SULFATE 0.083% 2.5 MG/3 ML VIAL.NEB INH SCH ×6 (03:00→23:00)
[2019-01-25] MEDS: IPRATROPIUM BROM 0.5 MG/2.5 ML VIAL.NEB (ATROVENT) INH SCH ×6 (03:00→23:00)
[2019-01-25] MEDS: PANTOPRAZOLE SODIUM 40 MG in NS 50 ML IV SCH ×4 (04:17→20:31)
[2019-01-25] MEDS: LEVOTHYROXINE SODIUM 0.15 MG TABLET PO SCH (06:20)
[2019-01-25 06:52] LABS: BASOPHILS % (AUTO) 0.8 % (0.0-2.0); EOSINOPHILS # (AUTO) 0.2 K/uL (0.0-0.4); EOSINOPHILS % (AUTO) 4.6 % (0.0-4.0); HEMOGLOBIN 7.2 g/dL (14.0-18.0); LYMPHOCYTES % (AUTO) 21.7 % (20.5-51.5); MEAN CORPUSCULAR HEMOGLOBIN 30 pg (27-31); MEAN CORPUSCULAR HGB CONC 35 % (32-36); MEAN CORPUSCULAR VOLUME 87 fL (79.0-98.0); MONOCYTES # (AUTO) 0.4 K/uL (0.0-1.0); MONOCYTES % (AUTO) 7.6 % (1.7-9.3); NEUTROPHILS % (AUTO) 65.3 % (40.0-70.0); PLATELET COUNT (AUTO) 140 K/uL (130-430); RED BLOOD CELL COUNT(AUTO) 2.37 MIL/uL (4.2-6.2); RED CELL DISTRIBUTION WIDTH 14.9 % (9.0-15.0); WHITE BLOOD COUNT (AUTO) 4.6 K/uL (4.8-10.8)
[2019-01-25 07:09] LABS: ALANINE AMINOTRANSFERASE 16 U/L (12-78); ALBUMIN 1.9 g/dL (3.4-4.8); ANION GAP 6 (5-15); ASPARTATE AMINOTRANSFERASE 14 U/L (10-37); CALCIUM 7.3 mg/dL (8.4-11.0); CHLORIDE 112 mmol/L (98-107); GLUCOSE 91 mg/dL (70-99); POTASSIUM 4.2 mmol/L (3.5-5.1); SODIUM SERUM 140 mmol/L (136-145); TOTAL BILIRUBIN 0.5 mg/dL (0.0-1.0); UREA NITROGEN, BLOOD 38 mg/dL (8-21)
[2019-01-25 07:36] LABS: HEMATOCRIT 20.6 % (36-54)
[2019-01-25] MEDS ORDERED: FUROSEMIDE 20 MG/2 ML VIAL IVP ONE (07:45)
[2019-01-25] MEDS: ATORVASTATIN 20 MG TABLET PO SCH (09:17)
[2019-01-25] MEDS: TAMSULOSIN HCL 0.4 MG CAP PO SCH (09:17)
[2019-01-25] MEDS: busPIRone HCL 5 MG TABLET PO SCH ×2 (09:17→20:30)
[2019-01-25] MEDS: CARVEDILOL 6.25 MG TABLET (COREG) PO SCH ×2 (09:18→20:32)
[2019-01-25] MEDS: NACL 0.9% 1,000 ML IV SCH (11:08)
[2019-01-25] MEDS: Effexor XR 37.5 MG PO SCH (13:00)
[2019-01-25 15:50] LABS: HEMATOCRIT 24.9 % (36-54); HEMOGLOBIN 8.5 g/dL (14.0-18.0)
[2019-01-25 23:27] LABS: HEMATOCRIT 23.4 % (36-54); HEMOGLOBIN 8.1 g/dL (14.0-18.0)
[2019-01-26] VITALS (24 sets, daily range): BP systolic 94–161
[2019-01-26] MEDS: PANTOPRAZOLE SODIUM 40 MG in NS 50 ML IV SCH ×5 (00:43→20:15)
[2019-01-26] MEDS: IPRATROPIUM BROM 0.5 MG/2.5 ML VIAL.NEB (ATROVENT) INH SCH ×6 (03:00→23:00)
[2019-01-26] MEDS: ALBUTEROL SULFATE 0.083% 2.5 MG/3 ML VIAL.NEB INH SCH ×6 (03:00→23:00)
[2019-01-26] MEDS: LEVOTHYROXINE SODIUM 0.15 MG TABLET PO SCH (06:17)
[2019-01-26 06:24] LABS: BASOPHILS % (AUTO) 0.9 % (0.0-2.0); EOSINOPHILS # (AUTO) 0.2 K/uL (0.0-0.4); HEMATOCRIT 23.8 % (36-54); HEMOGLOBIN 8.3 g/dL (14.0-18.0); LYMPHOCYTES % (AUTO) 20.4 % (20.5-51.5); MEAN CORPUSCULAR HEMOGLOBIN 30 pg (27-31); MEAN CORPUSCULAR HGB CONC 35 % (32-36); MEAN CORPUSCULAR VOLUME 86 fL (79.0-98.0); MONOCYTES # (AUTO) 0.4 K/uL (0.0-1.0); NEUTROPHILS # (AUTO) 3.3 K/uL (1.8-7.7); NEUTROPHILS % (AUTO) 66.7 % (40.0-70.0); PLATELET COUNT (AUTO) 155 K/uL (130-430); RED BLOOD CELL COUNT(AUTO) 2.78 MIL/uL (4.2-6.2); RED CELL DISTRIBUTION WIDTH 15.2 % (9.0-15.0); WHITE BLOOD COUNT (AUTO) 4.9 K/uL (4.8-10.8)
[2019-01-26 06:43] LABS: ALANINE AMINOTRANSFERASE 21 U/L (12-78); ALBUMIN 2.2 g/dL (3.4-4.8); ANION GAP 7 (5-15); ASPARTATE AMINOTRANSFERASE 16 U/L (10-37); CALCIUM 7.4 mg/dL (8.4-11.0); CHLORIDE 106 mmol/L (98-107); GLUCOSE 91 mg/dL (70-99); POTASSIUM 4.1 mmol/L (3.5-5.1); SODIUM SERUM 136 mmol/L (136-145); TOTAL BILIRUBIN 0.7 mg/dL (0.0-1.0); UREA NITROGEN, BLOOD 33 mg/dL (8-21)
[2019-01-26] MEDS ORDERED: ATORVASTATIN 20 MG TABLET PO SCH (09:00)
[2019-01-26] MEDS: ATORVASTATIN 20 MG TABLET PO SCH (09:24)
[2019-01-26] MEDS: Effexor XR 37.5 MG PO SCH (09:24)
[2019-01-26] MEDS: busPIRone HCL 5 MG TABLET PO SCH ×2 (09:24→20:14)
[2019-01-26] MEDS: TAMSULOSIN HCL 0.4 MG CAP PO SCH (09:28)
[2019-01-26] MEDS: CARVEDILOL 6.25 MG TABLET (COREG) PO SCH ×2 (09:28→22:06)
[2019-01-26] MEDS: NACL 0.9% 1,000 ML IV SCH ×2 (10:11→13:18)
[2019-01-26 15:41] LABS: HEMATOCRIT 25.2 % (36-54); HEMOGLOBIN 8.6 g/dL (14.0-18.0)
[2019-01-26 21:51] LABS: HEMATOCRIT 23.4 % (36-54); HEMOGLOBIN 8.1 g/dL (14.0-18.0)
[2019-01-27] VITALS (11 sets, daily range): BP systolic 105–134
[2019-01-27] MEDS: PANTOPRAZOLE SODIUM 40 MG in NS 50 ML IV SCH ×2 (01:11→05:26)
[2019-01-27] MEDS: IPRATROPIUM BROM 0.5 MG/2.5 ML VIAL.NEB (ATROVENT) INH SCH ×6 (02:44→23:00)
[2019-01-27] MEDS: ALBUTEROL SULFATE 0.083% 2.5 MG/3 ML VIAL.NEB INH SCH ×6 (02:44→23:00)
[2019-01-27] MEDS: NACL 0.9% 1,000 ML IV SCH (05:26)
[2019-01-27] MEDS: LEVOTHYROXINE SODIUM 0.15 MG TABLET PO SCH (06:10)
[2019-01-27 06:22] LABS: BASOPHILS % (AUTO) 0.5 % (0.0-2.0); EOSINOPHILS # (AUTO) 0.3 K/uL (0.0-0.4); EOSINOPHILS % (AUTO) 4.6 % (0.0-4.0); HEMATOCRIT 24.3 % (36-54); HEMOGLOBIN 8.4 g/dL (14.0-18.0); LYMPHOCYTES # (AUTO) 1.1 K/uL (1.0-5.5); LYMPHOCYTES % (AUTO) 19.5 % (20.5-51.5); MEAN CORPUSCULAR HEMOGLOBIN 30 pg (27-31); MEAN CORPUSCULAR HGB CONC 35 % (32-36); MEAN CORPUSCULAR VOLUME 86 fL (79.0-98.0); MONOCYTES # (AUTO) 0.4 K/uL (0.0-1.0); MONOCYTES % (AUTO) 6.6 % (1.7-9.3); NEUTROPHILS # (AUTO) 3.8 K/uL (1.8-7.7); NEUTROPHILS % (AUTO) 68.8 % (40.0-70.0); PLATELET COUNT (AUTO) 177 K/uL (130-430); RED BLOOD CELL COUNT(AUTO) 2.82 MIL/uL (4.2-6.2); RED CELL DISTRIBUTION WIDTH 15.3 % (9.0-15.0); WHITE BLOOD COUNT (AUTO) 5.5 K/uL (4.8-10.8)
[2019-01-27 06:30] LABS: ALANINE AMINOTRANSFERASE 19 U/L (12-78); ALBUMIN 2.1 g/dL (3.4-4.8); ANION GAP 6 (5-15); ASPARTATE AMINOTRANSFERASE 16 U/L (10-37); CALCIUM 7.3 mg/dL (8.4-11.0); CHLORIDE 107 mmol/L (98-107); CREATININE 1.66 mg/dL (0.55-1.30); GLUCOSE 91 mg/dL (70-99); POTASSIUM 3.8 mmol/L (3.5-5.1); SODIUM SERUM 136 mmol/L (136-145); TOTAL BILIRUBIN 0.6 mg/dL (0.0-1.0); UREA NITROGEN, BLOOD 28 mg/dL (8-21)
[2019-01-27] MEDS ORDERED: PANTOPRAZOLE SODIUM 40 MG TAB PO ONE (09:30)
[2019-01-27] MEDS: ATORVASTATIN 20 MG TABLET PO SCH (09:52)
[2019-01-27] MEDS: TAMSULOSIN HCL 0.4 MG CAP PO SCH (09:53)
[2019-01-27] MEDS: busPIRone HCL 5 MG TABLET PO SCH ×2 (09:53→20:15)
[2019-01-27] MEDS: CARVEDILOL 6.25 MG TABLET (COREG) PO SCH (09:53)
[2019-01-27] MEDS: Effexor XR 37.5 MG PO SCH (10:28)
[2019-01-27] MEDS: CARVEDILOL 3.125 MG TABLET (COREG) PO SCH (20:16)
[2019-01-27] MEDS: PANTOPRAZOLE SODIUM 40 MG TAB PO SCH (20:16)
[2019-01-28 00:06] VITALS: BP_SYST 126
[2019-01-28] MEDS: ALBUTEROL SULFATE 0.083% 2.5 MG/3 ML VIAL.NEB INH SCH ×4 (03:00→15:15)
[2019-01-28] MEDS: IPRATROPIUM BROM 0.5 MG/2.5 ML VIAL.NEB (ATROVENT) INH SCH ×4 (03:00→15:15)
[2019-01-28] MEDS: NACL 0.9% 1,000 ML IV SCH (06:04)
[2019-01-28] MEDS: LEVOTHYROXINE SODIUM 0.15 MG TABLET PO SCH (06:04)
[2019-01-28 07:33] LABS: BASOPHILS % (AUTO) 0.8 % (0.0-2.0); EOSINOPHILS # (AUTO) 0.2 K/uL (0.0-0.4); EOSINOPHILS % (AUTO) 4.2 % (0.0-4.0); HEMATOCRIT 23.2 % (36-54); LYMPHOCYTES # (AUTO) 0.7 K/uL (1.0-5.5); LYMPHOCYTES % (AUTO) 15.2 % (20.5-51.5); MEAN CORPUSCULAR HEMOGLOBIN 30 pg (27-31); MEAN CORPUSCULAR HGB CONC 35 % (32-36); MEAN CORPUSCULAR VOLUME 86 fL (79.0-98.0); MONOCYTES # (AUTO) 0.3 K/uL (0.0-1.0); MONOCYTES % (AUTO) 6.6 % (1.7-9.3); NEUTROPHILS # (AUTO) 3.5 K/uL (1.8-7.7); NEUTROPHILS % (AUTO) 73.2 % (40.0-70.0); PLATELET COUNT (AUTO) 175 K/uL (130-430); RED BLOOD CELL COUNT(AUTO) 2.69 MIL/uL (4.2-6.2); RED CELL DISTRIBUTION WIDTH 15.4 % (9.0-15.0); WHITE BLOOD COUNT (AUTO) 4.8 K/uL (4.8-10.8)
[2019-01-28 08:00] VITALS: BP_SYST 112
[2019-01-28 08:00] LABS: ALANINE AMINOTRANSFERASE 16 U/L (12-78); ANION GAP 7 (5-15); ASPARTATE AMINOTRANSFERASE 15 U/L (10-37); CALCIUM 7.3 mg/dL (8.4-11.0); CHLORIDE 107 mmol/L (98-107); CREATININE 1.63 mg/dL (0.55-1.30); GLUCOSE 92 mg/dL (70-99); POTASSIUM 3.6 mmol/L (3.5-5.1); SODIUM SERUM 136 mmol/L (136-145); TOTAL BILIRUBIN 0.5 mg/dL (0.0-1.0); UREA NITROGEN, BLOOD 23 mg/dL (8-21)
[2019-01-28] MEDS ORDERED: PRO40 PO (08:18)
[2019-01-28] MEDS ORDERED: FERR-69 PO (08:18)
[2019-01-28] MEDS: ATORVASTATIN 20 MG TABLET PO SCH (08:24)
[2019-01-28] MEDS: TAMSULOSIN HCL 0.4 MG CAP PO SCH (08:24)
[2019-01-28] MEDS: Effexor XR 37.5 MG PO SCH (08:24)
[2019-01-28] MEDS: PANTOPRAZOLE SODIUM 40 MG TAB PO SCH (08:24)
[2019-01-28] MEDS: busPIRone HCL 5 MG TABLET PO SCH (08:24)
[2019-01-28] MEDS: CARVEDILOL 3.125 MG TABLET (COREG) PO SCH (08:25)
[2019-01-28 10:13] VITALS: BP_SYST 112
[2019-01-28 11:30] VITALS: BP_SYST 98
[2019-01-28 15:50] VITALS: BP_SYST 110
[2019-01-28 16:30] VITALS: BP_SYST 105
== END 2019-01-28 17:15 | disposition home or self-care (01) | DRG 377 ==
LOC: SED 12:10 → STU 13:48 → SIC 01-24 03:07 → STU 01-27 06:55
PROVIDERS: ADMIT Internal Medicine Hospice and Palliative Medicine; ATTEND Internal Medicine Hospice and Palliative Medicine
PROC: 0DJD8ZZ Inspection of Lower Intestinal Tract, Via Natural or Artificial Opening Endoscopic (ICD-10-PCS; 2019-01-23)
PROC: 30233N1 Transfusion of Nonautologous Red Blood Cells into Peripheral Vein, Percutaneous Approach (ICD-10-PCS; 2019-01-23)
PROC: 0DB98ZX Excision of Duodenum, Via Natural or Artificial Opening Endoscopic, Diagnostic (ICD-10-PCS; principal; 2019-01-23 14:00)
PROC: 0DB68ZX Excision of Stomach, Via Natural or Artificial Opening Endoscopic, Diagnostic (ICD-10-PCS; 2019-01-23 14:00)
PROC: 3E0G8GC Introduction of Other Therapeutic Substance into Upper GI, Via Natural or Artificial Opening Endoscopic (ICD-10-PCS; 2019-01-24)
PROC: 0W3P8ZZ Control Bleeding in Gastrointestinal Tract, Via Natural or Artificial Opening Endoscopic (ICD-10-PCS; 2019-01-24)
DX: K26.4 Chronic or unspecified duodenal ulcer with hemorrhage (principal); N17.0 Acute kidney failure with tubular necrosis; J44.1 Chronic obstructive pulmonary disease with (acute) exacerbation; E44.0 Moderate protein-calorie malnutrition; D64.9 Anemia, unspecified; E03.9 Hypothyroidism, unspecified; E78.5 Hyperlipidemia, unspecified; I25.10 Atherosclerotic heart disease of native coronary artery without angina pectoris; N40.0 Benign prostatic hyperplasia without lower urinary tract symptoms; F32.9 Major depressive disorder, single episode, unspecified; I12.9 Hypertensive chronic kidney disease with stage 1 through stage 4 chronic kidney disease, or unspecified chronic kidney disease; K64.8 Other hemorrhoids; K44.9 Diaphragmatic hernia without obstruction or gangrene; K29.70 Gastritis, unspecified, without bleeding; N18.3 Chronic kidney disease, stage 3 (moderate); K57.30 Diverticulosis of large intestine without perforation or abscess without bleeding; Z95.5 Presence of coronary angioplasty implant and graft; Z87.891 Personal history of nicotine dependence; Z87.19 Personal history of other diseases of the digestive system; Z86.73 Personal history of transient ischemic attack (TIA), and cerebral infarction without residual deficits; Z79.899 Other long term (current) drug therapy; I25.2 Old myocardial infarction
CPT/HCPCS: 36415; 43239; 43255; 45378; 71045; 78278-TC; 80048; 80053; 81000-TC; 83880; 85018-TC; 85025; 85610-TC; 85730-TC; 86886; 86900; 86901; 86920; 87081; 88305; 88312; 88313; 93005; 94640; 94760; 99285; C9113; G0378; J0171; J1940; J2175; J2250; J7030; J7040; J7050; J7613; J7620; P9021

== ENCOUNTER 2019-03-30 12:43 | Inpatient (IN) | payer OTHER ==
[~2019-03-30] VITALS: Ht 182.9 cm; Wt 89.4 kg
[2019-03-30] VITALS (12 sets, daily range): BP systolic 85–133
[~2019-03-30 12:43] MED LIST changes: -AMOX-426 PO; -CLOP75TA32 PO; +COR6.25 PO; +FERR-69 PO; -PRED20TA PO; +PRO40 PO
--- NOTE | 2019-03-30 12:44 | NUR ---
Placed in room 08 . Placed on coding quality analyst, blood pressure machine and pulse oximeter. To gown for exam. Side rails up.
--- NOTE | 2019-03-30 12:56 | NUR ---
ER at bedside examining patient.
[2019-03-30] MEDS ORDERED: MAGNESIUM SULFATE 50 ML IV ONE (13:00)
[2019-03-30] MEDS ORDERED: IPRATROPIUM BROM 0.5 MG/2.5 ML VIAL.NEB (ATROVENT) INH ONE (13:00)
[2019-03-30] MEDS ORDERED: ALBUTEROL SULFATE 0.083% 2.5 MG/3 ML VIAL.NEB INH ONE (13:00)
[2019-03-30] MEDS ORDERED: ASPIRIN 81 MG TAB.CHEW PO ONE (13:00)
[2019-03-30] MEDS ORDERED: methylPREDNISolone SOD SUCC/PF 62.5 MG/ML VIAL IVP ONE (13:00)
--- NOTE | 2019-03-30 13:05 | NUR ---
RT at bedside for placement of BiPap 12I/5E FiO2 40% BUR 14.
--- NOTE | 2019-03-30 13:18 | NUR ---
Patient arrived via POV, with family. Patient having extreme SOB. Patient notes history of COPD. Per family he had was discharged from [facility] in January, and patient had pneumonia. Patient has completed the antibiotics. Since going home he had had a steady decline. Patient has had ongoing SOB for the past week, worsening today. Patients family notes no fever. Afebrile at time of triage.
--- NOTE | 2019-03-30 13:20 | NUR ---
RT at bedside for ABG, and patient is on bipap. 12I/5E FiO2 50% Back up rate of 14.
--- NOTE | 2019-03-30 13:25 | NUR ---
# 18 gauge angiocath placed to LFA. Use of asceptic technique. Opsite placed over site. Blood return noted. Flushed with 10 cc of normal saline. No evidence of infiltration noted. Patient tolerated well. Placed as a secondary IV site.
[2019-03-30 13:28] LABS: BASOPHILS % (AUTO) 0.3 % (0.0-2.0); EOSINOPHILS % (AUTO) 0.5 % (0.0-4.0); HEMATOCRIT 44.9 % (36-54); HEMOGLOBIN 14.4 g/dL (14.0-18.0); LYMPHOCYTES # (AUTO) 0.6 K/uL (1.0-5.5); LYMPHOCYTES % (AUTO) 5.6 % (20.5-51.5); MEAN CORPUSCULAR HEMOGLOBIN 27 pg (27-31); MEAN CORPUSCULAR HGB CONC 32 % (32-36); MEAN CORPUSCULAR VOLUME 83 fL (79.0-98.0); MONOCYTES % (AUTO) 9.4 % (1.7-9.3); NEUTROPHILS # (AUTO) 8.8 K/uL (1.8-7.7); NEUTROPHILS % (AUTO) 84.2 % (40.0-70.0); PLATELET COUNT (AUTO) 557 K/uL (130-430); RED BLOOD CELL COUNT(AUTO) 5.38 MIL/uL (4.2-6.2); RED CELL DISTRIBUTION WIDTH 15.1 % (9.0-15.0); WHITE BLOOD COUNT (AUTO) 10.4 K/uL (4.8-10.8)
--- NOTE | 2019-03-30 13:30 | NUR ---
Patient changed to 40% FiO2 on bipap.
[2019-03-30] MEDS ORDERED: FLUT16SP16 NS (13:33)
[2019-03-30] MEDS ORDERED: TRAZ-250 PO (13:33)
[2019-03-30] MEDS ORDERED: CLOP75TA32 PO (13:33)
[2019-03-30] MEDS ORDERED: albuterol INH (13:33)
[2019-03-30] MEDS ORDERED: FLUT1BLS5 IH (13:33)
--- NOTE | 2019-03-30 13:33 | NUR ---
Medication reconciliation completed with information provided by pill bottles brought by family. Any prior medication reconciliation on file was reviewed and corrected.
[2019-03-30 13:34] LABS: INR 1.1 (0.80-1.20)
[2019-03-30 13:42] LABS: ANION GAP 14 (5-15); CALCIUM 8.7 mg/dL (8.4-11.0); CHLORIDE 101 mmol/L (98-107); CREATININE 2.61 mg/dL (0.55-1.30); GLUCOSE 97 mg/dL (70-99); POTASSIUM 5.1 mmol/L (3.5-5.1); SODIUM SERUM 136 mmol/L (136-145); UREA NITROGEN, BLOOD 56 mg/dL (8-21)
[2019-03-30 13:47] LABS: ALANINE AMINOTRANSFERASE 19 U/L (12-78); ASPARTATE AMINOTRANSFERASE 24 U/L (10-37); TOTAL BILIRUBIN 0.7 mg/dL (0.0-1.0)
--- NOTE | 2019-03-30 14:42 | NUR ---
Patient will be admitted to care of Dr Hernandez . Admitted to ICU unit. Will go to room 02 . Belongings list completed. Complete and up to date summary report printed. SBAR report to be given at bedside with opportunity for questions.
--- NOTE | 2019-03-30 14:50 | NUR ---
Pt transported from ER with telemonitor. Received report from AUTOMOTIVE SALES ASSOCIATE using SBAR.
--- NOTE | 2019-03-30 15:05 | NUR ---
New consults paged to Dr. Melgoza and Dr. Valle. Spoke with exchange.
[2019-03-30] MEDS ORDERED: LIDOCAINE 2%, 20 ML MDV ONE (16:55)
--- NOTE | 2019-03-30 17:30 | NUR ---
Thoracentesis performed bedside per Dr. Melgoza. Pt tolerated well. Removed 1050cc and sent to lab.
[2019-03-30] MEDS ORDERED: ALBUTEROL MDI INHALATION 8 GM INH INH PRN (19:00)
[2019-03-30] MEDS ORDERED: LORazepam 2 MG/ML VIAL IVP PRN (19:00)
[2019-03-30] MEDS ORDERED: MORPHINE 4 MG/ML INJ. SYRINGE IVP PRN (19:00)
[2019-03-30] MEDS ORDERED: ONDANSETRON HCL 4 MG/2 ML VIAL IVP PRN (19:00)
[2019-03-30] MEDS ORDERED: MORPHINE 2 MG/ML INJ. SYRINGE IVP PRN (19:00)
[2019-03-30] MEDS: IPRATROPIUM/ALBUTEROL SULFATE 3 ML AMPUL.NEB (DUONEB) INH SCH (19:11)
--- NOTE | 2019-03-30 19:20 | NUR ---
Endorsement to night RN using SBAR. Pt watching tv. On BIPAP /, 14, 40%. No signs of pain or distress.
--- NOTE | 2019-03-30 20:00 | NUR ---
AWAKE, ALERT. ON O2 WITH BIPAP 12/5, BUR 14, FIO2 40%. POX 99%. BREATH SOUNDS DIMINISHED WITH SOME ADVENTITIOUS SOUNDS. BOWEL SOUNDS (+). PULSES PALPABLE. SKIN W/D. COLOR SATISFACTORY. HOB UP TO COMFORT. SIDE RAILS UP . CALL LIGHTS WITH IN REACH. SR.
[2019-03-30] MEDS ORDERED: PIPERACILLIN/TAZOBACTAM 3.375 GM/VIAL (ZOSYN) IV ONE (20:26)
[2019-03-30] MEDS: PIPERACILLIN/TAZO 3.375/DEX-IS 50 ML IV SCH (20:28)
[2019-03-30] MEDS: methylPREDNISolone SOD SUCC 40 MG/ML VIAL IVP SCH (21:28)
[2019-03-30] MEDS: PANTOPRAZOLE SODIUM 40 MG/VIAL (PROTONIX) IVP SCH (21:29)
[2019-03-30 21:56] LABS: BF APPEARANCE UNSPUN HAZY (CLEAR); BODY FLUID SOURCE/ TYPE PLEURAL; SOURCE/TYPE ,BODY FLUID PLEURAL
[2019-03-30 21:57] LABS: APPEARANCE,SPUN,BODY FLUID CLEAR (CLEAR); BODY FLUID COLOR YELLOW (LT YELLOW); BODY FLUID TOTAL VOLUME 1050 mL
[2019-03-30 21:58] LABS: EOSINOPHIL, BODY FLUID 0 %; LYMPHOCYTES, BODY FLUID 33 %; MACROPHAGES, BODY FLUID 0 %; MONOCYTES,BODY FLUID 59 %; NEUTROPHIL, BODY FLUID 8 %
[2019-03-30 22:00] LABS: RBC, BODY FLUID 579 /uL; WBC, BODY FLUID 413 /uL
--- NOTE | 2019-03-30 22:00 | NUR ---
AWAKE, RESTING QUIETLY. HS CARE GIVEN. TURNED.
[2019-03-31] VITALS (24 sets, daily range): BP systolic 83–122
--- NOTE | 2019-03-31 | NUR ---
DOZES ON AND OFF. VOIDED 100CC CLEAR CRISTIN URINE VIA URINAL. DENIES PAIN, DISTRESS, SOB.
[2019-03-31] MEDS: PIPERACILLIN/TAZO 3.375/DEX-IS 50 ML IV SCH ×4 (00:03→17:10)
[2019-03-31] MEDS: IPRATROPIUM/ALBUTEROL SULFATE 3 ML AMPUL.NEB (DUONEB) INH SCH ×4 (00:46→19:22)
--- NOTE | 2019-03-31 04:00 | NUR ---
SLEPT INTERMITTENTLY. VSS. IN NO APPARENT DISTRESS.
--- NOTE | 2019-03-31 06:00 | NUR ---
SLEPT WELL MOST OF NOC. VOIDED 100CC CLEAR CRISTIN URINE VIA URINAL. NO COMPLAINTS OFFERED AT THIS TIME. REMAINS IN GUARDED CONDITION.
[2019-03-31 06:04] LABS: BASOPHILS % (AUTO) 0.1 % (0.0-2.0); EOSINOPHILS % (AUTO) 0.5 % (0.0-4.0); HEMATOCRIT 41.3 % (36-54); LYMPHOCYTES # (AUTO) 0.2 K/uL (1.0-5.5); LYMPHOCYTES % (AUTO) 2.5 % (20.5-51.5); MEAN CORPUSCULAR HEMOGLOBIN 27 pg (27-31); MEAN CORPUSCULAR HGB CONC 32 % (32-36); MEAN CORPUSCULAR VOLUME 84 fL (79.0-98.0); MONOCYTES # (AUTO) 0.3 K/uL (0.0-1.0); MONOCYTES % (AUTO) 3.5 % (1.7-9.3); NEUTROPHILS # (AUTO) 7.1 K/uL (1.8-7.7); NEUTROPHILS % (AUTO) 93.4 % (40.0-70.0); PLATELET COUNT (AUTO) 421 K/uL (130-430); RED CELL DISTRIBUTION WIDTH 15.7 % (9.0-15.0); WHITE BLOOD COUNT (AUTO) 7.6 K/uL (4.8-10.8)
--- NOTE | 2019-03-31 07:17 | NUR ---
RECEIVED NURSING REPORT FROM SHUTTLE CAR OPERATORTeresa RINALDI
[2019-03-31 07:43] LABS: CHLORIDE 102 mmol/L (98-107); PHOSPHORUS 5.7 mg/dL (2.7-4.5)
[2019-03-31 08:52] LABS: ALANINE AMINOTRANSFERASE 18 U/L (12-78); ALBUMIN 2.6 g/dL (3.4-4.8); ANION GAP 12 (5-15); ASPARTATE AMINOTRANSFERASE 19 U/L (10-37); CALCIUM 8.3 mg/dL (8.4-11.0); CREATININE 2.57 mg/dL (0.55-1.30); GLUCOSE 121 mg/dL (70-99); POTASSIUM 5.2 mmol/L (3.5-5.1); SODIUM SERUM 135 mmol/L (136-145); TOTAL BILIRUBIN 0.6 mg/dL (0.0-1.0); UREA NITROGEN, BLOOD 67 mg/dL (8-21)
[2019-03-31] MEDS: FLUTICASONE PROPIONATE 50 mCg/SPRAY 16 GM SCH (09:00)
[2019-03-31] MEDS: methylPREDNISolone SOD SUCC 40 MG/ML VIAL IVP SCH ×2 (09:18→21:13)
[2019-03-31] MEDS: PANTOPRAZOLE SODIUM 40 MG/VIAL (PROTONIX) IVP SCH (09:18)
--- NOTE | 2019-03-31 09:25 | NUR ---
AT 0925 A.M ,RECEIVED ABNORMAL LAB. RESULT: POTASSIUM 5.2, BUN 67, CREATININE 2.57, PHOS 7.3, MAG 3.9, REPORTED TO DR. ENGEL, ORDERED CONSULT , WAS CALLED, WAITING FOR CALL BACK, ALSO ORDERED START REGULAR DIET
--- NOTE | 2019-03-31 09:36 | NUR ---
New consult paged to Dr. Gregorio. Spoke with exchange
[2019-03-31 09:46] LABS: BODY FLUID GLUCOSE 61 mg/dL; BODY FLUID TOTAL PROTEIN 4.3 g/dL
--- NOTE | 2019-03-31 10:17 | NUR ---
PT PLACED ON 4L OXYMIZER FOR EATING. TITRATED TO 6L OXY DUE TO DESAT. SAT 96%. Addendum: 03/31/19 at 1021 by Radha Correa RT Amended: Links added.
--- NOTE | 2019-03-31 10:20 | NUR ---
DR. BRENNAN SEE PATIENT
--- NOTE | 2019-03-31 11:25 | NUR ---
DR. MCCARTNEY SEE PATIENT FOR NEW CONSULT, ORDERED GIVE LASIX 20 MG IVP X ONCE
--- NOTE | 2019-03-31 11:35 | NUR ---
DR. ENGEL SEE PATIENT
[2019-03-31] MEDS ORDERED: FUROSEMIDE 20 MG/2 ML VIAL IVP ONE (11:45)
--- NOTE | 2019-03-31 13:24 | NUR ---
AFTER EXPLAINED TO PATIENT,S SON DELMAR , OBTAINED LEFT SIDE LUNG THORACENTESIS CONSENT IN THE CHART ( WILL ON SCHEDULE 04/01/19, WITH RADIOLOGISTS )
--- NOTE | 2019-03-31 14:17 | NUR ---
New consult paged to Dr. pEifanio Buck. Spoke with exchange and sent facesheet.
--- NOTE | 2019-03-31 19:26 | NUR ---
GIVE COMPLETE NURSING REPORT TO SUPERVISOR CONDITIONING YARDGABRIELLE LAY R.N
[2019-03-31] MEDS: BUDESONIDE 0.5 MG/2 ML AMPUL.NEB INH SCH (19:37)
--- NOTE | 2019-03-31 20:00 | NUR ---
AAOX4. IN NO APPARENT DISTRESS. VSS. DENIES PAIN. BREATH SOUNDS WITH ADVENTITIOUS SOUNDS. O2 ON BIPAP 12/5, BUR 14, FIO2 40%. BOWEL SOUNDS (+). PULSES PALPABLE. SKIN W/D. COLOR SATISFACTORY. HOB UP TO COMFORT. SIDE RAILS UP. CALL LIGHTS WITHIN REACH. SR.
--- NOTE | 2019-03-31 21:00 | NUR ---
TRAZODONE 50 MG PO GIVEN FOR SLEEP PER PT REQUEST. HS CARE RENDERED.
[2019-03-31] MEDS: busPIRone HCL 5 MG TABLET PO SCH (21:13)
[2019-03-31] MEDS: traZODone HCL 50 MG TABLET (DESYREL) PO SCH (21:14)
[2019-03-31] MEDS: FERROUS SULFATE 325 MG TABLET.DR PO SCH (21:15)
[2019-03-31] MEDS: CARVEDILOL 6.25 MG TABLET (COREG) PO SCH (21:15)
[2019-03-31] MEDS: PANTOPRAZOLE SODIUM 40 MG TAB PO SCH (21:15)
[2019-04-01] VITALS (24 sets, daily range): BP systolic 76–125
--- NOTE | 2019-04-01 | NUR ---
SOUNDLY ASLEEP. ABLE TO REPOSITION SELF. BP LABILE WHEN TURNING ON SIDE.
[2019-04-01] MEDS: PIPERACILLIN/TAZO 3.375/DEX-IS 50 ML IV SCH ×4 (00:06→18:05)
[2019-04-01] MEDS: IPRATROPIUM/ALBUTEROL SULFATE 3 ML AMPUL.NEB (DUONEB) INH SCH ×4 (00:45→19:27)
--- NOTE | 2019-04-01 02:00 | NUR ---
SOUNDLY ASLEEP. 0 DISTRESS. SINUS HANS NOTED. ASYMPTOMATIC.
--- NOTE | 2019-04-01 04:00 | NUR ---
SLEPT FOR LONG PERIODS OF TIME. VSS. DENIES PAIN, SOB, DISTRESS.
--- NOTE | 2019-04-01 06:00 | NUR ---
INCONTINENT OF URINE. ROSANNE-CARE, BACK CARE, SKIN CARE DONE. PARTIAL LINEN CHANGE DONE. ASSISTS WITH TURNING. AIDAN PROC WELL. REMAINS IN GUARDED CONDITION.
[2019-04-01] MEDS: LEVOTHYROXINE SODIUM 0.15 MG TABLET PO SCH (06:11)
[2019-04-01 06:30] LABS: HEMATOCRIT 39.9 % (36-54); HEMOGLOBIN 12.9 g/dL (14.0-18.0); LYMPHOCYTES # (AUTO) 0.1 K/uL (1.0-5.5); LYMPHOCYTES % (AUTO) 1.4 % (20.5-51.5); MEAN CORPUSCULAR HEMOGLOBIN 27 pg (27-31); MEAN CORPUSCULAR HGB CONC 32 % (32-36); MEAN CORPUSCULAR VOLUME 82 fL (79.0-98.0); MONOCYTES # (AUTO) 0.4 K/uL (0.0-1.0); MONOCYTES % (AUTO) 3.9 % (1.7-9.3); NEUTROPHILS # (AUTO) 8.5 K/uL (1.8-7.7); NEUTROPHILS % (AUTO) 94.7 % (40.0-70.0); PLATELET COUNT (AUTO) 385 K/uL (130-430); RED BLOOD CELL COUNT(AUTO) 4.87 MIL/uL (4.2-6.2); RED CELL DISTRIBUTION WIDTH 15.1 % (9.0-15.0)
[2019-04-01 06:38] LABS: ALANINE AMINOTRANSFERASE 16 U/L (12-78); ALBUMIN 2.5 g/dL (3.4-4.8); ANION GAP 10 (5-15); ASPARTATE AMINOTRANSFERASE 11 U/L (10-37); C-REACTIVE PROTEIN QUANT 1.9 mg/dL (0-0.5); CALCIUM 8.3 mg/dL (8.4-11.0); CHLORIDE 101 mmol/L (98-107); CREATININE 3.03 mg/dL (0.55-1.30); GLUCOSE 126 mg/dL (70-99); PHOSPHORUS 6.1 mg/dL (2.7-4.5); POTASSIUM 4.8 mmol/L (3.5-5.1); SODIUM SERUM 132 mmol/L (136-145); TOTAL BILIRUBIN 0.5 mg/dL (0.0-1.0); UREA NITROGEN, BLOOD 77 mg/dL (8-21)
--- NOTE | 2019-04-01 07:07 | NUR ---
RECEIVED NURSING REPORT FROM FLORAL ARTISTGABRIELLE LAY R.N
[2019-04-01] MEDS: BUDESONIDE 0.5 MG/2 ML AMPUL.NEB INH SCH ×2 (07:22→19:40)
[2019-04-01 07:45] LABS: ERYTHROCYTE SEDIMENTATION RATE 3 MM/HR (0-15)
--- NOTE | 2019-04-01 08:30 | NUR ---
SEE PATIENT, ORDERED INSERT HARTMAN CATHETER AND FOLLOW UP CBC,CMP IN A.M
[2019-04-01] MEDS: FLUTICASONE PROPIONATE 50 mCg/SPRAY 16 GM SCH (08:35)
[2019-04-01] MEDS: busPIRone HCL 5 MG TABLET PO SCH ×2 (08:36→21:18)
[2019-04-01] MEDS: CARVEDILOL 6.25 MG TABLET (COREG) PO SCH ×2 (08:39→21:17)
[2019-04-01] MEDS: ATORVASTATIN 20 MG TABLET PO SCH (08:40)
[2019-04-01] MEDS: PANTOPRAZOLE SODIUM 40 MG TAB PO SCH ×2 (08:40→21:18)
[2019-04-01] MEDS: FERROUS SULFATE 325 MG TABLET.DR PO SCH ×2 (08:40→21:18)
[2019-04-01] MEDS: TAMSULOSIN HCL 0.4 MG CAP PO SCH (08:40)
[2019-04-01] MEDS: methylPREDNISolone SOD SUCC 40 MG/ML VIAL IVP SCH ×2 (08:40→21:16)
[2019-04-01] MEDS: Effexor XR 37.5 MG PO SCH (08:41)
[2019-04-01] MEDS: NACL 0.9% 1,000 ML IV SCH (08:47)
[2019-04-01] MEDS ORDERED: LISINOPRIL 10 MG TABLET (PRINIVIL) PO SCH (09:00)
[2019-04-01] MEDS ORDERED: CLOPIDOGREL BISULFATE 75 MG TABLET PO SCH (09:00)
--- NOTE | 2019-04-01 09:20 | NUR ---
SEE PATIENT ON LEFT BACK THORACENTESIS AT BEDSIDE, DRAIN OUT CLEAR YELLOW PLEURAL FLUID 1500 ML, AND FOLLOW UP STAT CHEST X-RAY
--- NOTE | 2019-04-01 09:35 | NUR ---
RT NOTES- OFF BIPAP PT OFF BIPAP, PLACED ON 5L OXYMIZER AT THIS TIME TO HAVE BREAKFAST. VIVIAN FELIX MADE AWARE.
--- NOTE | 2019-04-01 10:00 | NUR ---
SEE PATIENT ORDERED WILL FOLLOW UP CHEST C-T SCAN TODAY AND CHEST X-RAY IN TOMORROW A.M
--- NOTE | 2019-04-01 10:45 | NUR ---
DR. RONNI RIVERA SEE PATIENT
--- NOTE | 2019-04-01 12:34 | NUR ---
Dietitian Recommendations *Recommend: Cardiac diet w/ Ensure Enlive BID. ONS will provide 700 kcal and 40 gm protein daily. *Encourage pt to increase PO intake. Please see Nutritional Assessment for details. L[place], RD
--- NOTE | 2019-04-01 14:30 | NUR ---
AT 1400 P.M ,SENT PATIENT TO C-T ROOM FOLLOW UP CHEST C-T SCAN, AT 1425P.M COME BACK TO ICU ROOM 2
[2019-04-01] MEDS: IPRATROPIUM/ALBUTEROL SULFATE 3 ML AMPUL.NEB (DUONEB) INH PRN (15:30)
--- NOTE | 2019-04-01 19:15 | NUR ---
OPENING NOTE SBAR REPORT RECEIVED FROM ISIDRO PARK. CARE ASSUMED. PT LAYING IN BED ANO X 4. PT IS ON 5L OXIMIZER. OXYGEN SATURATION 98%. PT HAS 18 G TO LOWER LEFT FORE ARM RUNNING NORMAL SALINE @ 50 ML/HR AND 2OG TO UPPER FOREARM SALINE LOCKED. PEDAL AND RADIAL PULSES NORMAL. NO EDEMA NOTED. ABDOMEN SOFT NON-TENDER. BOWEL SOUNDS ACTIVE IN ALL QUADRANTS. PT HAS HARTMAN CATHETER IN PLACE. DRAINING TO GRAVITY. URINE YELLOW AND CLEAR. SKIN INTACT. BED LOCKED IN LOWEST POSITION. SAFETY PRECAUTIONS IN PLACE. CALL LIGHT WITH IN REACH. WILL CONTINUE TO MONTIOR.
--- NOTE | 2019-04-01 19:25 | NUR ---
GIVE COMPLETE NURSING REPORT TO DIAMOND SIZER IMELDA Joshi
[2019-04-01] MEDS: traZODone HCL 50 MG TABLET (DESYREL) PO SCH (21:17)
[2019-04-02] VITALS (24 sets, daily range): BP systolic 75–133
[2019-04-02] MEDS: IPRATROPIUM/ALBUTEROL SULFATE 3 ML AMPUL.NEB (DUONEB) INH SCH ×4 (00:40→19:43)
[2019-04-02] MEDS: PIPERACILLIN/TAZO 3.375/DEX-IS 50 ML IV SCH ×4 (00:52→17:24)
[2019-04-02] MEDS: NACL 0.9% 1,000 ML IV SCH (05:59)
[2019-04-02] MEDS: LEVOTHYROXINE SODIUM 0.15 MG TABLET PO SCH (06:00)
[2019-04-02 06:14] LABS: BASOPHILS % (AUTO) 0.2 % (0.0-2.0); EOSINOPHILS % (AUTO) 0.1 % (0.0-4.0); HEMATOCRIT 39.6 % (36-54); HEMOGLOBIN 12.8 g/dL (14.0-18.0); LYMPHOCYTES # (AUTO) 0.2 K/uL (1.0-5.5); LYMPHOCYTES % (AUTO) 1.7 % (20.5-51.5); MEAN CORPUSCULAR HEMOGLOBIN 27 pg (27-31); MEAN CORPUSCULAR HGB CONC 33 % (32-36); MEAN CORPUSCULAR VOLUME 83 fL (79.0-98.0); MONOCYTES # (AUTO) 0.3 K/uL (0.0-1.0); MONOCYTES % (AUTO) 2.6 % (1.7-9.3); NEUTROPHILS # (AUTO) 9.6 K/uL (1.8-7.7); NEUTROPHILS % (AUTO) 95.4 % (40.0-70.0); PLATELET COUNT (AUTO) 330 K/uL (130-430); RED BLOOD CELL COUNT(AUTO) 4.77 MIL/uL (4.2-6.2); RED CELL DISTRIBUTION WIDTH 15.1 % (9.0-15.0); WHITE BLOOD COUNT (AUTO) 10.1 K/uL (4.8-10.8)
--- NOTE | 2019-04-02 07:07 | NUR ---
RECEIVED NURSING REPORT FROM ASSISTANT KITCHEN MANAGER IMELDA Joshi
[2019-04-02] MEDS: BUDESONIDE 0.5 MG/2 ML AMPUL.NEB INH SCH ×2 (07:36→19:43)
--- NOTE | 2019-04-02 08:30 | NUR ---
SEE PATIENT, ORDERED DOWN GRADE TO TELE STATUS, AND HOSPICE EVAL
[2019-04-02 08:38] LABS: ALANINE AMINOTRANSFERASE 19 U/L (12-78); ALBUMIN 2.1 g/dL (3.4-4.8); ANION GAP 8 (5-15); ASPARTATE AMINOTRANSFERASE 13 U/L (10-37); CALCIUM 7.9 mg/dL (8.4-11.0); CHLORIDE 103 mmol/L (98-107); CREATININE 2.49 mg/dL (0.55-1.30); GLUCOSE 124 mg/dL (70-99); POTASSIUM 4.9 mmol/L (3.5-5.1); SODIUM SERUM 133 mmol/L (136-145); TOTAL BILIRUBIN 0.4 mg/dL (0.0-1.0); UREA NITROGEN, BLOOD 76 mg/dL (8-21)
[2019-04-02] MEDS: FERROUS SULFATE 325 MG TABLET.DR PO SCH ×2 (08:56→21:26)
[2019-04-02] MEDS: methylPREDNISolone SOD SUCC 40 MG/ML VIAL IVP SCH ×2 (08:56→21:26)
[2019-04-02] MEDS: busPIRone HCL 5 MG TABLET PO SCH ×2 (08:56→21:26)
[2019-04-02] MEDS: PANTOPRAZOLE SODIUM 40 MG TAB PO SCH ×2 (08:57→21:26)
[2019-04-02] MEDS: TAMSULOSIN HCL 0.4 MG CAP PO SCH (08:57)
[2019-04-02] MEDS: CARVEDILOL 6.25 MG TABLET (COREG) PO SCH ×2 (08:57→21:27)
[2019-04-02] MEDS: ATORVASTATIN 20 MG TABLET PO SCH (08:57)
[2019-04-02] MEDS: Effexor XR 37.5 MG PO SCH (08:58)
--- NOTE | 2019-04-02 09:37 | NUR ---
Social Service Note: SHAPER MACHINE HAND received order for hospice evaluation. SHAPER MACHINE HAND contacted Tamra ([phone]) insurance sales manager; Tamra states that she will contact the hospice agency. SHAPER MACHINE HAND will remain available for support and will follow up as needed.
[2019-04-02] MEDS ORDERED: FLECAINIDE ACETATE 50 MG TABLET (TAMBOCOR) PO SCH (10:15)
[2019-04-02] MEDS ORDERED: DILTIAZEM HCL 120 MG CAP.SR.24H PO SCH (10:15)
[2019-04-02] MEDS ORDERED: APIXABAN 2.5 MG TABLET PO SCH (10:15)
[2019-04-02] MEDS: FLUTICASONE PROPIONATE 50 mCg/SPRAY 16 GM SCH (10:19)
--- NOTE | 2019-04-02 10:25 | NUR ---
DR. CARRINGTON SEE PATIENT, ORDERED CONSULT DR. TAPIA FOR PLEURX CATHETER
--- NOTE | 2019-04-02 10:30 | NUR ---
[facility] GAME PRODUCER MARSHALL CALLED , AND REQUEST FAX TO HER THE PATIENT,S FACE SHEET AND H & P, WAS NOTIFY CHARGE NURSE AYDE AWARE, WAS FAXED AT 1028 A.M
[2019-04-02] MEDS: IPRATROPIUM/ALBUTEROL SULFATE 3 ML AMPUL.NEB (DUONEB) INH PRN (11:33)
--- NOTE | 2019-04-02 12:13 | NUR ---
AT 1205 DR. RONNI RIVERA SEE PATIENT
--- NOTE | 2019-04-02 13:00 | NUR ---
SEE PATIENT, AND EXPLAINED THE PLEURX CATHETER PROCEDURE TO PATIENT AND SON DELMAR, THEN OBTAINED CONSENT IN THE CHART
--- NOTE | 2019-04-02 13:54 | NUR ---
PATIENT IS SHOW HYPOTENSION, B.P 75/54-80/52 MMHG, AT 1345 P.M ,REPORTED TO , ORDERED ON LEVOPHED DRIP, KEEP SBP. 90 MMHG , AND HOLD TRANSFER TO TELE, WILL NOTIFY AWARE
[2019-04-02] MEDS: NOREPINEPHRINE BITARTRATE 4 MG in D5W 246 ML IV PRN (14:00)
--- NOTE | 2019-04-02 14:10 | NUR ---
REPORT TO REGARDING OF HYPOTENSION, ORDERED GIVE NORMAL SALINE 500 ML BOLUS X ONCE, AND HOLD TRANSFER TO TELE STATUS
--- NOTE | 2019-04-02 14:20 | NUR ---
RT NOTES - BIPAP PT STILL HAVING DIFFICULTY BREATHING POST TX. PLACED PT ON BIPAP AT THIS TIME. VIVIAN FELIX MADE AWARE.
[2019-04-02] MEDS ORDERED: NOREPINEPHRINE 4 MG/4 ML VIAL IV ONE (14:22)
[2019-04-02] MEDS ORDERED: NACL 0.9% 500 ML IV ONE (14:30)
--- NOTE | 2019-04-02 19:25 | NUR ---
OPENING NOTE SBAR REPORT RECEIVED FROM ISIDRO PARK. CARE ASSUMED. PT LAYING IN BED ANO X 4. PT IS ON 5L OXIMIZER. OXYGEN SATURATION 98%. PT SINUS RHYTHM ON MONITOR. PT HAS 18 G TO LOWER LEFT FORE ARM RUNNING NORMAL SALINE @ 50 ML/HR AND 2OG TO RIGHT FOREARM RUNNING LEVOPHED @ 5 MCG/KG/MIN. PEDAL AND RADIAL PULSES NORMAL. NO EDEMA NOTED. ABDOMEN SOFT NON-TENDER. BOWEL SOUNDS ACTIVE IN ALL QUADRANTS. PT HAS HARTMAN CATHETER IN PLACE. DRAINING TO GRAVITY. URINE YELLOW AND CLEAR. SKIN INTACT. BED LOCKED IN LOWEST POSITION. SAFETY PRECAUTIONS IN PLACE. CALL LIGHT WITH IN REACH. WILL CONTINUE TO [facility].
--- NOTE | 2019-04-02 19:25 | NUR ---
GIVE COMPLETE NURSING REPORT TO FISCAL CLERK IMELDA Joshi
[2019-04-02] MEDS: traZODone HCL 50 MG TABLET (DESYREL) PO SCH (21:28)
[2019-04-03] VITALS (23 sets, daily range): BP systolic 92–152
[2019-04-03] MEDS: PIPERACILLIN/TAZO 3.375/DEX-IS 50 ML IV SCH ×4 (00:38→17:27)
[2019-04-03] MEDS: NACL 0.9% 1,000 ML IV SCH ×2 (00:39→20:31)
[2019-04-03] MEDS: IPRATROPIUM/ALBUTEROL SULFATE 3 ML AMPUL.NEB (DUONEB) INH SCH ×4 (01:14→19:30)
[2019-04-03] MEDS: NOREPINEPHRINE BITARTRATE 4 MG in D5W 246 ML IV PRN (02:42)
[2019-04-03] MEDS: LEVOTHYROXINE SODIUM 0.15 MG TABLET PO SCH (06:14)
[2019-04-03 06:49] LABS: BASOPHILS % (AUTO) 0.1 % (0.0-2.0); HEMATOCRIT 37.1 % (36-54); HEMOGLOBIN 12.2 g/dL (14.0-18.0); LYMPHOCYTES # (AUTO) 0.2 K/uL (1.0-5.5); LYMPHOCYTES % (AUTO) 1.7 % (20.5-51.5); MEAN CORPUSCULAR HEMOGLOBIN 27 pg (27-31); MEAN CORPUSCULAR HGB CONC 33 % (32-36); MEAN CORPUSCULAR VOLUME 83 fL (79.0-98.0); MONOCYTES # (AUTO) 0.4 K/uL (0.0-1.0); MONOCYTES % (AUTO) 3.9 % (1.7-9.3); NEUTROPHILS # (AUTO) 9.9 K/uL (1.8-7.7); NEUTROPHILS % (AUTO) 94.3 % (40.0-70.0); PLATELET COUNT (AUTO) 361 K/uL (130-430); RED CELL DISTRIBUTION WIDTH 15.1 % (9.0-15.0); WHITE BLOOD COUNT (AUTO) 10.5 K/uL (4.8-10.8)
[2019-04-03 07:12] LABS: ALANINE AMINOTRANSFERASE 17 U/L (12-78); ALBUMIN 1.9 g/dL (3.4-4.8); ANION GAP 8 (5-15); ASPARTATE AMINOTRANSFERASE 16 U/L (10-37); CHLORIDE 103 mmol/L (98-107); CREATININE 2.37 mg/dL (0.55-1.30); GLUCOSE 145 mg/dL (70-99); POTASSIUM 5.1 mmol/L (3.5-5.1); SODIUM SERUM 131 mmol/L (136-145); TOTAL BILIRUBIN 0.2 mg/dL (0.0-1.0); UREA NITROGEN, BLOOD 78 mg/dL (8-21)
--- NOTE | 2019-04-03 07:20 | NUR ---
CLOSING NOTE PT LAYING IN BED. PT HAS LEVOPHED RUNNING @ 5 MCG/KG/MIN AND NS @ 50 ML/HR. PT ON BIPAP. BIPAP SETTINGS 12/ BACK UP RATE OF 14 FiO2 OF 30%. NO SIGNS OR SYMPTOMS OF DISTRESS NOTED. SBAR REPORT GIVEN TO MORENA PARK. CARE ENDORSED.
--- NOTE | 2019-04-03 07:21 | NUR ---
Opening Note Received bedside report from endorsing RN for continuation of care. Received patient awake and resting in bed, denies any SOB or pain. No signs or symptoms of acute distress noted. Bed locked in lowest position, bed alarm on, and call light within reach. Fall and safety precautions in place.
[2019-04-03] MEDS: BUDESONIDE 0.5 MG/2 ML AMPUL.NEB INH SCH ×2 (07:23→19:51)
--- NOTE | 2019-04-03 08:04 | NUR ---
0735 PT TAKEN OFF BIPAP. PT STATED HE DOES NOT WANT TO WEAR IT. WILL MONITOR PT FOR SOB AND PLACE ON BIPAP IF SOB. VIVIAN BERG AWARE. SAT 100% HR 56 RR 20. Addendum: 04/03/19 at 0814 by Radha Correa RT Amended: Links added.
[2019-04-03] MEDS: Effexor XR 37.5 MG PO SCH (08:05)
[2019-04-03] MEDS: TAMSULOSIN HCL 0.4 MG CAP PO SCH (08:05)
[2019-04-03] MEDS: methylPREDNISolone SOD SUCC 40 MG/ML VIAL IVP SCH ×2 (08:06→20:32)
[2019-04-03] MEDS: PANTOPRAZOLE SODIUM 40 MG TAB PO SCH ×2 (08:06→20:31)
[2019-04-03] MEDS: FERROUS SULFATE 325 MG TABLET.DR PO SCH ×2 (08:06→20:31)
[2019-04-03] MEDS: busPIRone HCL 5 MG TABLET PO SCH ×2 (08:06→20:32)
[2019-04-03] MEDS: ATORVASTATIN 20 MG TABLET PO SCH (08:06)
[2019-04-03] MEDS: CARVEDILOL 6.25 MG TABLET (COREG) PO SCH ×2 (08:09→20:32)
[2019-04-03] MEDS: FLUTICASONE PROPIONATE 50 mCg/SPRAY 16 GM SCH (08:10)
--- NOTE | 2019-04-03 08:14 | NUR ---
0735 PT ON 4LOXY. Addendum: 04/03/19 at 0817 by Radha Correa RT Amended: Links added.
--- NOTE | 2019-04-03 08:30 | NUR ---
Dr. Ramos in to see patient. No new orders.
--- NOTE | 2019-04-03 09:14 | NUR ---
Dr. Melgoza at bedside examining patient. New orders received.
--- NOTE | 2019-04-03 11:53 | NUR ---
CHG/BM Patient had large formed BM. Pericare done. CHG bath given and bed linens changed. Patient cleaned, turned, and repositioned. No signs or symptoms of acute distress noted. Fall and safety precautions in place.
--- NOTE | 2019-04-03 12:23 | NUR ---
Ariella wire weaver Meshel at bedside discussing hospice care with patient.
--- NOTE | 2019-04-03 13:39 | NUR ---
Case mgt: Lia from [facility] came to our office-she explained she met w/pt and son Sushil (DPOA) at bedside-gave them information -Sushil will discuss with rest of family-Lia to f/u tomorrow at noon to see if they want Hospice and pt wants to be at home--LISSY PARK
[2019-04-03] MEDS ORDERED: ONDANSETRON HCL 4 MG/2 ML VIAL IVP PRN (15:00)
[2019-04-03] MEDS ORDERED: fentaNYL CITRATE/PF 100 MCG/2 ML AMP IVP PRN ×2 (15:00)
--- NOTE | 2019-04-03 15:00 | NUR ---
Patient's son at bedside. Updated on patient status and plan of care. Education provided and all questions answered clearly.
--- NOTE | 2019-04-03 17:39 | NUR ---
Patient transferred to OR for surgery on continuous pvc monitor and oxygen using ACLS protocol.
[2019-04-03] MEDS ORDERED: MIDAZOLAM HCL 5 MG/ML VIAL (VERSED) IV ONE (18:35)
[2019-04-03] MEDS ORDERED: NS 1000 ML IV.SOLN IV ONE (18:35)
[2019-04-03] MEDS ORDERED: PROPOFOL 200MG/ 20ML VIAL (DIPRIVAN) IV ONE (18:35)
--- NOTE | 2019-04-03 19:05 | NUR ---
Patient return to ICU from OR.
--- NOTE | 2019-04-03 19:12 | NUR ---
Endorsement Endorsed bedside report to oncoming RN using SBAR approach for continuation of care.
[2019-04-03] MEDS ORDERED: BUDESONIDE 0.5 MG/2 ML AMPUL.NEB ONE (19:32)
--- NOTE | 2019-04-03 19:40 | NUR ---
OPENING NOTE SBAR REPORT RECEIVED FROM MORENA PARK. CARE ASSUMED. PT LAYING IN BED ANO X 4. PT IS ON 5L OXIMIZER. OXYGEN SATURATION 100%. PT SINUS RHYTHM ON MONITOR. PT HAS 18 G TO LOWER LEFT FORE ARM RUNNING NORMAL SALINE @ 50 ML/HR AND 2OG TO RIGHT FOREARM RUNNING LEVOPHED @ 3 MCG/KG/MIN. PEDAL AND RADIAL PULSES NORMAL. PT HAS INDWELLING PLEURIX CHEST TUBE CLAMPED IN PLACE. DRESSING CLEAN DRY AND INTACT. NO EDEMA NOTED. ABDOMEN SOFT NON-TENDER. BOWEL SOUNDS ACTIVE IN ALL QUADRANTS. PT HAS HARTMAN CATHETER IN PLACE. DRAINING TO GRAVITY. URINE YELLOW AND CLEAR. SKIN INTACT. SON AT BEDSIDE. BED LOCKED IN LOWEST POSITION. SAFETY PRECAUTIONS IN PLACE. CALL LIGHT WITH IN REACH. WILL CONTINUE TO MONTIOR.
[2019-04-04] VITALS (19 sets, daily range): BP systolic 92–125
[2019-04-04] MEDS: PIPERACILLIN/TAZO 3.375/DEX-IS 50 ML IV SCH ×4 (00:59→18:20)
[2019-04-04] MEDS: IPRATROPIUM/ALBUTEROL SULFATE 3 ML AMPUL.NEB (DUONEB) INH SCH ×4 (01:05→19:35)
[2019-04-04 05:27] LABS: BASOPHILS % (AUTO) 0.3 % (0.0-2.0); LYMPHOCYTES # (AUTO) 0.2 K/uL (1.0-5.5); MEAN CORPUSCULAR HEMOGLOBIN 27 pg (27-31); MEAN CORPUSCULAR HGB CONC 32 % (32-36); MEAN CORPUSCULAR VOLUME 82 fL (79.0-98.0); MONOCYTES # (AUTO) 0.4 K/uL (0.0-1.0); MONOCYTES % (AUTO) 3.7 % (1.7-9.3); NEUTROPHILS # (AUTO) 9.2 K/uL (1.8-7.7); PLATELET COUNT (AUTO) 320 K/uL (130-430); RED BLOOD CELL COUNT(AUTO) 4.86 MIL/uL (4.2-6.2); RED CELL DISTRIBUTION WIDTH 15.1 % (9.0-15.0); WHITE BLOOD COUNT (AUTO) 9.8 K/uL (4.8-10.8)
[2019-04-04 06:00] LABS: ALANINE AMINOTRANSFERASE 18 U/L (12-78); ALBUMIN 1.9 g/dL (3.4-4.8); ASPARTATE AMINOTRANSFERASE 15 U/L (10-37); CALCIUM 7.7 mg/dL (8.4-11.0); CHLORIDE 105 mmol/L (98-107); CREATININE 1.88 mg/dL (0.55-1.30); GLUCOSE 112 mg/dL (70-99); POTASSIUM 5.1 mmol/L (3.5-5.1); SODIUM SERUM 136 mmol/L (136-145); TOTAL BILIRUBIN 0.3 mg/dL (0.0-1.0); UREA NITROGEN, BLOOD 69 mg/dL (8-21)
[2019-04-04] MEDS: LEVOTHYROXINE SODIUM 0.15 MG TABLET PO SCH (06:01)
[2019-04-04 06:25] LABS: ANION GAP 6 (5-15)
--- NOTE | 2019-04-04 07:20 | NUR ---
PATIENT ASSESSMENT PATIENT RECEIVED FROM VIVIAN TENA. HOB IN UPRIGHT POSITION AND PATIENT'S O2 SATURATION IS AT 99%. PATIENT IS COMPLIANT AND AWAKE AND COMPLAINS OF NO PAIN. WILL CONTINUE TO MONITOR.
[2019-04-04] MEDS: BUDESONIDE 0.5 MG/2 ML AMPUL.NEB INH SCH ×2 (07:24→19:35)
--- NOTE | 2019-04-04 07:30 | NUR ---
CLOSING NOTE NO SIGNS OR SYMPTOMS OF DISTRESS NOTED. SBAR REPORT GIVEN TO JESSE PARK AND RIGO PARK. CARE ENDORSED.
[2019-04-04] MEDS: FERROUS SULFATE 325 MG TABLET.DR PO SCH ×2 (08:54→20:41)
[2019-04-04] MEDS: methylPREDNISolone SOD SUCC 40 MG/ML VIAL IVP SCH ×2 (08:54→20:41)
[2019-04-04] MEDS: Effexor XR 37.5 MG PO SCH (08:54)
[2019-04-04] MEDS: ATORVASTATIN 20 MG TABLET PO SCH (08:55)
[2019-04-04] MEDS: TAMSULOSIN HCL 0.4 MG CAP PO SCH (08:55)
[2019-04-04] MEDS: PANTOPRAZOLE SODIUM 40 MG TAB PO SCH ×2 (08:55→20:41)
[2019-04-04] MEDS: CARVEDILOL 6.25 MG TABLET (COREG) PO SCH ×2 (08:56→20:42)
[2019-04-04] MEDS: busPIRone HCL 5 MG TABLET PO SCH ×2 (08:56→20:42)
[2019-04-04] MEDS: FLUTICASONE PROPIONATE 50 mCg/SPRAY 16 GM SCH (10:02)
--- NOTE | 2019-04-04 14:45 | NUR ---
RECEIEVED PT FROM ICU C/O RN NICOLE, PT DENIES PAIN, TACHYPNEIC AT 24 - 26 BPM , BP IS 109/62, HR 76, 02 ON 2L PER OXIMIZER IS 93% , LEFT LUNG SOUND ON UPPER LOBE CLEAR, DIMINISHED ON BASE, R. LUNG SOUND WNL. PT HAS NO FEVER. SAFETY PRECAUTION IN PLACE. CALL LIGHT IN REACH. BED IN LOW POSITION. ENCOURAGED PT TO CALL FOR ASSIST AND PAIN MED. WILL CONT TO MONITOR.
--- NOTE | 2019-04-04 15:06 | NUR ---
Nutrition F/U RD reviewed pt's current EMR record including diet Hx, physician notes, nursing notes, pertinent labs/meds/procedures, care trends, and care activity. 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 Pt is s/p PleurX chest tube insertion 04/03/19. Pt requested cake w/ dinner -- RD notified FNS staff to provide. Pt also wanted to have Ensure Enlive 3x/day -- RD to implement request. Per EMR, PO intakes have been steady since admission -- 68% average x7 meals (fair). Skin Integrity Comment: Garett scale: 17 No pressure injury. +blanchable redness per EMR Current % PO Fair (50-74%) NEW Estimated Energy Expenditure (kcals/day) 5895-2028 kcal/day (30-35 kcal/kg IBW for CA) NEW Estimated Protein Required (g/day) 81-97 gm/day (1-1.2 gm/kg IBW for Renal Dz predialysis/CA) Estimated Fluid Required (l/day) Defer to MD d/t CHF and ARF Problem/Etiology/Signs/Symptoms Altered nutrition related labs r/t medication interaction AEB elevated BG lab values. *ongoing Suboptimal PO intake r/t poor appetite 2/2 SOB AEB PO intake meets <76% of est needs. *ongoing Expected Outcomes/Goals Monitor appetite and PO intake w/ goal of pt meeting at least 75% of estimated nutritional needs, labs trending WNL, normal GI function, skin integrity/wt maintenance Dietitian Recommendations * Recommend cardiac diet w/ Ensure Enlive TID (ONS provides 1050 kcal/day and 60 gm protein/day) * Encourage increase PO intake Follow Up Moderate Risk: F/U in 3-5 days
--- NOTE | 2019-04-04 15:13 | NUR ---
Dietitian Recommendations * Recommend cardiac diet w/ Ensure Enlive TID (ONS provides 1050 kcal/day and 60 gm protein/day) * Encourage increase PO intake LP, RD Please refer to Nutrition F/U for details.
--- NOTE | 2019-04-04 18:04 | NUR ---
pt in bed, eating dinner. no sob. no resp distress.
--- NOTE | 2019-04-04 18:06 | NUR ---
pt in bed, eating dinner. no c/o pain, no sob.
[2019-04-04] MEDS: NACL 0.9% 1,000 ML IV SCH (18:19)
--- NOTE | 2019-04-04 18:23 | NUR ---
closing note, pt has been stable since arrival from icu. no c/o pain, no sob. left chest tube clamped and dressing dry and intact. cruz kept. pt ate dinner. iv fluids infusing well. iv abx given. will endorse to night nurse.
--- NOTE | 2019-04-04 19:20 | NUR ---
CHANGE OF SHIFT; pt. awake, alert, watching tv when received. on Oximizer via nasal @ 2l O2. on high fowlers position. no distress. instructed on deep breathing. maintain bed rest. call light within reach. will reassess later.
--- NOTE | 2019-04-04 20:30 | NUR ---
NOTES: pt. awake, alert and oriented. VS checked. due medications taken well, due breathing treatment in progress, will be on BIPAP at night time, pt. aware. IVF infusing via left wrist area. O2 @ 2l per oximizer. occ. bouts of productive cough. pt. with pleurex cath (chest tube) on his left chest area intact and clamped. cruz cath to OSD. pt. instructed on deep breathing. sequentials on both legs. call light within reach. on fall risk precautions. cardia monitor shows sinus rhythm.
[2019-04-04] MEDS: traZODone HCL 50 MG TABLET (DESYREL) PO SCH (20:49)
--- NOTE | 2019-04-04 21:00 | NUR ---
NOTES: back rub done and repositioned. kept HOB elevated.
--- NOTE | 2019-04-05 00:01 | NUR ---
NOTES: RT informed me, pt. does not need to on BIPAP, O2 sat 92% on 4 liters O2.
[2019-04-05 00:30] VITALS: BP_SYST 103
[2019-04-05] MEDS: PIPERACILLIN/TAZO 3.375/DEX-IS 50 ML IV SCH ×4 (00:47→17:29)
[2019-04-05] MEDS: IPRATROPIUM/ALBUTEROL SULFATE 3 ML AMPUL.NEB (DUONEB) INH SCH ×4 (01:35→19:29)
--- NOTE | 2019-04-05 02:17 | NUR ---
NOTES: pt. checked, pt. sleeping comfortably. condition observed.
--- NOTE | 2019-04-05 04:30 | NUR ---
NOTES: pt. been sleeping, no complaints. continue to monitor.
--- NOTE | 2019-04-05 05:30 | NUR ---
NOTES: partial am care/reyes care, slight redness on coccyx area, Z trell cream applie. both knees checked, no redness. cruz intact. repositioned, wants to stay on his back, HOB elevated. call light at bedside.
--- NOTE | 2019-04-05 06:44 | NUR ---
CLOSING NOTES; pt. went back to sleep. IV antibiotic infused, main iV NS @ 50 cc/hr. continuous O2 @ 4 liters via oximizer. cruz cath to osd. no distress. kept HOB elevated. on fall risk precautions. call light within reach. for further care and assist. will endorse to day shift .
[2019-04-05] MEDS: LEVOTHYROXINE SODIUM 0.15 MG TABLET PO SCH (06:51)
[2019-04-05] MEDS: BUDESONIDE 0.5 MG/2 ML AMPUL.NEB INH SCH ×2 (07:44→19:29)
--- NOTE | 2019-04-05 07:50 | NUR ---
INITIAL NOTE RECEIVED PT IN BED, NO S/S OF DISTRESS OR SOB NOTED, PT HAS NO C/O PAIN AT THIS TIME, PT IN STABLE CONDITION. PT AAOX4, VERBAL, IV CATHETER PATENT, NO SIGNS OF INFECTION OR INFILTRATION NOTED, RUNNING IV FLUIDS ORDERED. PT HAS BILATERAL SCD'S IN PLACE. PT ON OXYGEN 2 LITERS VIA OXYMIZER, SATURATION OF 93%. F/C DRAINING VIA GRAVITY. BED AT LOWEST POSITION, CALL LIGHT WITHIN REACH, WILL CONTINUE TO MONITOR PT FOR ANY CHANGES, FALL AND SAFETY PRECAUTIONS IN PLACE. PT HAS A LEFT CHEST PLEUREX CATHETER, DRESSING CLEAN AND DRY. Addendum: 04/05/19 at 1615 by Beata Wooten RN EDUCATED PT ON USE OF INCENTIVE SPIROMETER, PT TO USE 10 TIMES AN HOUR WHILE AWAKE, PT VERBALIZED UNDERSTANDING, PT AT 500ML. Addendum: 04/05/19 at 1845 by Beata Wooten RN PT ON OXYMIZER AT 4L NOT 2 L
[2019-04-05 08:15] VITALS: BP_SYST 141
[2019-04-05] MEDS: ATORVASTATIN 20 MG TABLET PO SCH (08:21)
[2019-04-05] MEDS: busPIRone HCL 5 MG TABLET PO SCH ×2 (08:21→20:49)
[2019-04-05] MEDS: TAMSULOSIN HCL 0.4 MG CAP PO SCH (08:21)
[2019-04-05] MEDS: PANTOPRAZOLE SODIUM 40 MG TAB PO SCH ×2 (08:21→20:50)
[2019-04-05] MEDS: FERROUS SULFATE 325 MG TABLET.DR PO SCH ×2 (08:21→20:50)
[2019-04-05] MEDS: CARVEDILOL 6.25 MG TABLET (COREG) PO SCH ×2 (08:22→20:50)
[2019-04-05] MEDS: methylPREDNISolone SOD SUCC 40 MG/ML VIAL IVP SCH ×2 (08:22→20:49)
[2019-04-05] MEDS: Effexor XR 37.5 MG PO SCH (08:36)
[2019-04-05] MEDS: FLUTICASONE PROPIONATE 50 mCg/SPRAY 16 GM SCH (08:36)
--- NOTE | 2019-04-05 10:55 | NUR ---
ROUNDS PT IN BED, NO S/S OF DISTRESS OR SOB NOTED, PT HAS NO C/O PAIN AT THIS TIME, PT IN STABLE CONDITION, PT RESTING COMFORTABLY, WILL CONTINUE TO MONITOR PT FOR ANY CHANGES. PT RESTING COMFORTABLY.
[2019-04-05] MEDS: NACL 0.9% 1,000 ML IV SCH (11:40)
[2019-04-05 12:18] VITALS: BP_SYST 128
--- NOTE | 2019-04-05 13:55 | NUR ---
FAMILY SON CAME IN TO SEE PT, PER SON FAMILY WILL HAVE MEETING AT 7 PM [facility] WITH [facility], SON WILL CALL [facility] WITH FINAL DECISION.
--- NOTE | 2019-04-05 14:22 | NUR ---
MD MENEZES SPOKE WITH DR WAGNER IN REGARDS TO D/C, MADE HIM AWARE THAT PER SON THEY WILL HAVE MEETING TODAY AT 7 PM ABOUT HOSPICE AND WILL DECIDE THEN, PER MD OK TO KEEP PT ONE MORE DAY, D/C IN AM.
[2019-04-05 14:32] VITALS: BP_SYST 141
--- NOTE | 2019-04-05 14:55 | NUR ---
ROUNDS PT IN BED, NO S/S OF DISTRESS OR SOB NOTED, PT HAS NO C/O PAIN AT THIS TIME, PT IN STABLE CONDITION, PT RESTING COMFORTABLY AND TALKING TO HIS SON WHO IS AT BEDSIDE. WILL CONTINUE TO MONITOR PT FOR ANY CHANGES.
--- NOTE | 2019-04-05 15:19 | NUR ---
PLEUREX TUBE DRAINED 1 L OF SANGUINEOUS DRAINAGE, PT TOLERATED, SATURATION OF 93% ON 4 L OXYMIZER. WILL CONTINUE TO MONITOR PT FOR ANY CHANGES, PT TOLERATED. Addendum: 04/05/19 at 1843 by Beata Wooten RN DRESSING CHANGED USING STERILE TECHNIQUE
[2019-04-05 16:13] VITALS: BP_SYST 106
--- NOTE | 2019-04-05 18:42 | NUR ---
CLOSING NOTE PT IN BED, NO S/S OF DISTRESS OR SOB NOTED, PT HAS NO C/O PAIN AT THIS TIME, PT IN STABLE CONDITION. PT AAOX4, VERBAL, IV CATHETER PATENT, NO SIGNS OF INFECTION OR INFILTRATION NOTED, RUNNING IV FLUIDS ORDERED. PT HAS BILATERAL SCD'S IN PLACE. PT ON OXYGEN 4 LITERS VIA OXYMIZER, SATURATION OF 93%. F/C DRAINING VIA GRAVITY. BED AT LOWEST POSITION, CALL LIGHT WITHIN REACH, WILL ENDORSE CARE OF PT TO INCOMING NURSE, FALL AND SAFETY PRECAUTIONS IN PLACE. PT HAS A LEFT CHEST PLEUREX CATHETER, DRESSING CLEAN AND DRY.
--- NOTE | 2019-04-05 19:49 | NUR ---
Initial note: Received report from dayshift RN. Patient is awake in bed watching TV. No acute distress. Alert and oriented x4, even and unlabored breathing on 4L oximizer. Left lower chest PleurX tube noted. No leakages, dressing is c/d/i. IV sites are patent and benign. Ambriz catheter draining yellow urine to gravity. Call light with patient. Safety, fall, aspiration precautions in place. Will continue with plan of care.
[2019-04-05 20:48] VITALS: BP_SYST 100
[2019-04-05] MEDS: traZODone HCL 50 MG TABLET (DESYREL) PO SCH (20:49)
--- NOTE | 2019-04-05 22:14 | NUR ---
Incontinence care: Patient had a BM with brown, formed stool. Incontinence care rendered, fresh linens and underpad provided, patient was repositioned and made comfortable. Call light is with patient. Will continue to monitor.
[2019-04-06 00:49] VITALS: BP_SYST 126
[2019-04-06] MEDS: PIPERACILLIN/TAZO 3.375/DEX-IS 50 ML IV SCH (00:49)
--- NOTE | 2019-04-06 00:49 | NUR ---
Rounds: Patient is sleeping comfortably in bed, does not show any acute distress. Tolerating 4L oximizer. Call light with patient. Will continue monitoring.
[2019-04-06] MEDS: IPRATROPIUM/ALBUTEROL SULFATE 3 ML AMPUL.NEB (DUONEB) INH SCH ×4 (01:00→19:16)
--- NOTE | 2019-04-06 03:22 | NUR ---
Rounds: Patient is asleep in bed. No acute distress. Tolerating 4L Oximizer, even and unlabored breathing. Call light is with patient. Will continue monitoring.
[2019-04-06] MEDS: LEVOTHYROXINE SODIUM 0.15 MG TABLET PO SCH (06:13)
--- NOTE | 2019-04-06 06:28 | NUR ---
Closing note: Patient is resting in bed, no acute distress. Even and unlabored breathing on 4L oximizer. IV sites patent and intact. Ambriz catheter draining well to gravity. All needs met. Safety, fall, aspiration precautions observed. Hourly rounding performed throughout shift. Will endorse care to dayshift RN.
--- NOTE | 2019-04-06 06:52 | NUR ---
Spoke with son: Spoke with patient's son/DPSADE Abhishek Renea, called phone number [phone] per face sheet. Per son, he has decided to go with [facility] for hospice service and has signed a contract with them. Will relay information to dayshift RN.
[2019-04-06 07:15] LABS: BASOPHILS % (AUTO) 0.1 % (0.0-2.0); HEMATOCRIT 38.6 % (36-54); HEMOGLOBIN 12.7 g/dL (14.0-18.0); LYMPHOCYTES # (AUTO) 0.2 K/uL (1.0-5.5); LYMPHOCYTES % (AUTO) 1.7 % (20.5-51.5); MEAN CORPUSCULAR HEMOGLOBIN 27 pg (27-31); MEAN CORPUSCULAR HGB CONC 33 % (32-36); MEAN CORPUSCULAR VOLUME 81 fL (79.0-98.0); MONOCYTES # (AUTO) 0.5 K/uL (0.0-1.0); NEUTROPHILS # (AUTO) 11.4 K/uL (1.8-7.7); NEUTROPHILS % (AUTO) 94.2 % (40.0-70.0); PLATELET COUNT (AUTO) 290 K/uL (130-430); RED BLOOD CELL COUNT(AUTO) 4.78 MIL/uL (4.2-6.2); RED CELL DISTRIBUTION WIDTH 15.4 % (9.0-15.0); WHITE BLOOD COUNT (AUTO) 12.1 K/uL (4.8-10.8)
--- NOTE | 2019-04-06 07:30 | NUR ---
AM ROUNDS: PATIENT AWAKE ,SEMI AYALA'S ON THE BED.ON OXYMIZER AT 4L/MIN,GOOD SATURATION. LEFT CHEST PLEURX IN. NO SOB THIS TIME. RIGHT WRIST DRESSING CLEAN AND DRY. HARTMAN DRAINING TO CLOUDY URINE. CALL LIGHT WITH IN REACH. BED LOCKED AT LOWEST POSITION. BED ALARM ON. CONTINUE TO MONITOR.
[2019-04-06] MEDS: BUDESONIDE 0.5 MG/2 ML AMPUL.NEB INH SCH ×2 (07:33→19:15)
[2019-04-06 07:35] VITALS: BP_SYST 131
[2019-04-06] MEDS: TAMSULOSIN HCL 0.4 MG CAP PO SCH (09:04)
[2019-04-06] MEDS: PANTOPRAZOLE SODIUM 40 MG TAB PO SCH ×2 (09:05→20:43)
[2019-04-06] MEDS: CARVEDILOL 6.25 MG TABLET (COREG) PO SCH ×2 (09:05→20:46)
[2019-04-06] MEDS: FERROUS SULFATE 325 MG TABLET.DR PO SCH ×2 (09:06→20:43)
[2019-04-06] MEDS: busPIRone HCL 5 MG TABLET PO SCH ×2 (09:06→20:43)
[2019-04-06] MEDS: Effexor XR 37.5 MG PO SCH (09:06)
[2019-04-06] MEDS: methylPREDNISolone SOD SUCC 40 MG/ML VIAL IVP SCH ×2 (09:07→20:46)
[2019-04-06] MEDS: ATORVASTATIN 20 MG TABLET PO SCH (09:07)
--- NOTE | 2019-04-06 09:07 | NUR ---
Med Pass: Due po meds given . No adverse reactions noted.
[2019-04-06] MEDS: FLUTICASONE PROPIONATE 50 mCg/SPRAY 16 GM SCH (09:08)
[2019-04-06] MEDS: IPRATROPIUM/ALBUTEROL SULFATE 3 ML AMPUL.NEB (DUONEB) INH PRN (10:55)
--- NOTE | 2019-04-06 12:30 | NUR ---
Rn Rounds: Patient with low appetite.Took only his ensure. No other problem this time.
[2019-04-06 12:55] VITALS: BP_SYST 115
--- NOTE | 2019-04-06 14:20 | NUR ---
Rn Rounds: Patient sleeping during rounds. Stable.
--- NOTE | 2019-04-06 15:01 | NUR ---
PAGED PAGED VALORIE PALMA AT [phone] SPOKE WITH LINO.
--- NOTE | 2019-04-06 15:20 | NUR ---
New Order: Spoke with Dr Matias and relayed chest x-ray results ,with orders drain at least 1 liter from pleurx then patient can be discharge home with Hospice as ordered.
--- NOTE | 2019-04-06 15:45 | NUR ---
Drain: [facility] nurse Rj obtained 1 liter of body fluids from pleurx as ordered.Patient felt much better and sob alleviated.
--- NOTE | 2019-04-06 16:32 | NUR ---
Hold Dc today: Spoke with Dr. Timoteo Rivera and informed him family and patient requested to stay over night due to Hospice nurse will be able to visit patient tomorrow .Dr. Timoteo Rivera ordered, ok to hold dc today per request.
[2019-04-06 16:40] VITALS: BP_SYST 118
--- NOTE | 2019-04-06 18:39 | NUR ---
Closing Notes: Patient watching tv. No complained made. Call light with in reach. Bed locked at lowest position. Bed alarm on. Not in any respiratory distress. Still on Oxymizer at 4l/min,good saturation.
--- NOTE | 2019-04-06 19:52 | NUR ---
Initial note: Received report from dayshift RN. Patient is awake in bed watching TV. No acute distress. Alert and oriented x4, even and unlabored breathing on 4L oximizer. Left lower chest PleurX tube noted. No leakages, dressing is c/d/i. Patient denies shortness of breath, states he felt better after PleurX was drained. IV sites are patent and benign. Ambriz catheter draining yellow urine to gravity. Call light with patient. Safety, fall, aspiration precautions in place. Will continue with plan of care.
[2019-04-06 20:37] VITALS: BP_SYST 117
[2019-04-06] MEDS: traZODone HCL 50 MG TABLET (DESYREL) PO SCH (20:43)
--- NOTE | 2019-04-06 22:44 | NUR ---
Rounds: Patient is resting in bed, no acute distress. Even and unlabored breathing on 4L Oximizer. Call light with patient. Will continue to monitor.
[2019-04-07] MEDS: IPRATROPIUM/ALBUTEROL SULFATE 3 ML AMPUL.NEB (DUONEB) INH SCH ×2 (00:09→07:13)
[2019-04-07 01:12] VITALS: BP_SYST 131
--- NOTE | 2019-04-07 01:36 | NUR ---
Rounds: Patient is sleeping comfortably in bed, does not show any acute distress. Tolerating 4L oximizer. Call light with patient. Will continue monitoring.
--- NOTE | 2019-04-07 04:37 | NUR ---
Rounds: Patient is asleep, no acute distress. Even and unlabored breathing on 4L oximizer. Call light with patient. Will continue monitoring.
[2019-04-07] MEDS: LEVOTHYROXINE SODIUM 0.15 MG TABLET PO SCH (06:38)
--- NOTE | 2019-04-07 06:52 | NUR ---
Closing note: Patient is resting in bed, no acute distress. Even and unlabored breathing on 4L oximizer. IV sites patent and intact. All needs met. Safety, fall, aspiration precautions observed. Hourly rounding performed throughout shift. Will endorse care to dayshift RN.
[2019-04-07 07:11] LABS: BASOPHILS % (AUTO) 0.1 % (0.0-2.0); HEMATOCRIT 39.8 % (36-54); HEMOGLOBIN 12.9 g/dL (14.0-18.0); LYMPHOCYTES # (AUTO) 0.2 K/uL (1.0-5.5); LYMPHOCYTES % (AUTO) 1.5 % (20.5-51.5); MEAN CORPUSCULAR HEMOGLOBIN 26 pg (27-31); MEAN CORPUSCULAR HGB CONC 33 % (32-36); MEAN CORPUSCULAR VOLUME 81 fL (79.0-98.0); MONOCYTES # (AUTO) 0.6 K/uL (0.0-1.0); MONOCYTES % (AUTO) 4.6 % (1.7-9.3); NEUTROPHILS # (AUTO) 11.9 K/uL (1.8-7.7); NEUTROPHILS % (AUTO) 93.8 % (40.0-70.0); PLATELET COUNT (AUTO) 282 K/uL (130-430); RED BLOOD CELL COUNT(AUTO) 4.89 MIL/uL (4.2-6.2); RED CELL DISTRIBUTION WIDTH 15.5 % (9.0-15.0); WHITE BLOOD COUNT (AUTO) 12.6 K/uL (4.8-10.8)
[2019-04-07] MEDS: BUDESONIDE 0.5 MG/2 ML AMPUL.NEB INH SCH (07:13)
--- NOTE | 2019-04-07 07:25 | NUR ---
AM ROUNDS: PATIENT ON BREATHING TREATMENT DURING ROUNDS. CALL LIGHT WITH IN REACH. BED LOCKED AT LOWEST POSITION. BED ALARM ON.BILATERAL SCD'S ON [facility] WILL BE DC PRIOR TO DISCHARGE TODAY ORDERED. NO ACUTE DISTRESS.
[2019-04-07 07:27] LABS: ALANINE AMINOTRANSFERASE 36 U/L (12-78); ALBUMIN 1.8 g/dL (3.4-4.8); ANION GAP 4 (5-15); ASPARTATE AMINOTRANSFERASE 20 U/L (10-37); CALCIUM 7.8 mg/dL (8.4-11.0); CHLORIDE 102 mmol/L (98-107); GLUCOSE 150 mg/dL (70-99); POTASSIUM 5.5 mmol/L (3.5-5.1); SODIUM SERUM 134 mmol/L (136-145); TOTAL BILIRUBIN 0.3 mg/dL (0.0-1.0); UREA NITROGEN, BLOOD 62 mg/dL (8-21)
[2019-04-07 07:35] VITALS: BP_SYST 118
[2019-04-07 08:20] VITALS: BP_SYST 118
[2019-04-07] MEDS: PANTOPRAZOLE SODIUM 40 MG TAB PO SCH (08:38)
[2019-04-07] MEDS: TAMSULOSIN HCL 0.4 MG CAP PO SCH (08:38)
[2019-04-07] MEDS: FLUTICASONE PROPIONATE 50 mCg/SPRAY 16 GM SCH (08:38)
[2019-04-07] MEDS: FERROUS SULFATE 325 MG TABLET.DR PO SCH (08:38)
[2019-04-07] MEDS: methylPREDNISolone SOD SUCC 40 MG/ML VIAL IVP SCH (08:39)
[2019-04-07] MEDS: busPIRone HCL 5 MG TABLET PO SCH (08:39)
[2019-04-07] MEDS: Effexor XR 37.5 MG PO SCH (08:39)
[2019-04-07] MEDS: CARVEDILOL 6.25 MG TABLET (COREG) PO SCH (08:39)
[2019-04-07] MEDS: ATORVASTATIN 20 MG TABLET PO SCH (08:39)
--- NOTE | 2019-04-07 09:00 | NUR ---
DC HARTMAN: HARTMAN DISCONTINUED ORDERED. PATIENT HAD VOIDED AFTER HARTMAN OUT.
--- NOTE | 2019-04-07 10:20 | NUR ---
D/C Patient Patient given medication reconciliation form and D/C instructions. Exit Care provided. Patient verbalized understanding. discussed with patient the results and treatment provided.Home health hospice arranged already.Home health nurse Kyra to visit patient today at home.Abhishek(Dpoa-son)aware. Assisted patient to the wheelchair for discharge to home. Patient in stable condition, ID band removed. IV catheter removed, intact and dressing applied, no active bleeding.Patient's own o2 portable,on oxymizer at 4l/min.Left chest Pleurx intact,dressing clean and dry. Patient educated on pain management. All belongings sent with patient.
== END 2019-04-07 10:20 | disposition hospice, home (50) | DRG 871 ==
LOC: SED 12:43 → SIC 14:23 → STU 04-04 15:43
PROVIDERS: ADMIT Internal Medicine Hospice and Palliative Medicine; ATTEND Internal Medicine Hospice and Palliative Medicine
PROC: 0W9B3ZZ Drainage of Left Pleural Cavity, Percutaneous Approach (ICD-10-PCS; principal; 2019-03-30)
PROC: 5A09357 Assistance with Respiratory Ventilation, Less than 24 Consecutive Hours, Continuous Positive Airway Pressure (ICD-10-PCS; 2019-03-30)
PROC: 5A09357 Assistance with Respiratory Ventilation, Less than 24 Consecutive Hours, Continuous Positive Airway Pressure (ICD-10-PCS; 2019-03-31)
PROC: 5A09357 Assistance with Respiratory Ventilation, Less than 24 Consecutive Hours, Continuous Positive Airway Pressure (ICD-10-PCS; 2019-04-01)
PROC: 5A09357 Assistance with Respiratory Ventilation, Less than 24 Consecutive Hours, Continuous Positive Airway Pressure (ICD-10-PCS; 2019-04-02)
PROC: 0JH63XZ Insertion of Tunneled Vascular Access Device into Chest Subcutaneous Tissue and Fascia, Percutaneous Approach (ICD-10-PCS; 2019-04-03)
PROC: 0W9B30Z Drainage of Left Pleural Cavity with Drainage Device, Percutaneous Approach (ICD-10-PCS; 2019-04-03)
PROC: 5A09357 Assistance with Respiratory Ventilation, Less than 24 Consecutive Hours, Continuous Positive Airway Pressure (ICD-10-PCS; 2019-04-03)
DX: A41.9 Sepsis, unspecified organism (principal); J18.9 Pneumonia, unspecified organism; J96.01 Acute respiratory failure with hypoxia; N17.0 Acute kidney failure with tubular necrosis; R65.21 Severe sepsis with septic shock; J44.0 Chronic obstructive pulmonary disease with (acute) lower respiratory infection; N17.9 Acute kidney failure, unspecified; J91.0 Malignant pleural effusion; C34.90 Malignant neoplasm of unspecified part of unspecified bronchus or lung; I13.0 Hypertensive heart and chronic kidney disease with heart failure and stage 1 through stage 4 chronic kidney disease, or unspecified chronic kidney disease; I50.32 Chronic diastolic (congestive) heart failure; K92.2 Gastrointestinal hemorrhage, unspecified; C79.9 Secondary malignant neoplasm of unspecified site; E87.2 Acidosis; D64.9 Anemia, unspecified; E03.9 Hypothyroidism, unspecified; E78.5 Hyperlipidemia, unspecified; F17.210 Nicotine dependence, cigarettes, uncomplicated; I25.10 Atherosclerotic heart disease of native coronary artery without angina pectoris; N18.9 Chronic kidney disease, unspecified; N40.0 Benign prostatic hyperplasia without lower urinary tract symptoms; R93.89 Abnormal findings on diagnostic imaging of other specified body structures; Z51.5 Encounter for palliative care; I25.2 Old myocardial infarction; Z85.118 Personal history of other malignant neoplasm of bronchus and lung; Z95.5 Presence of coronary angioplasty implant and graft
CPT/HCPCS: 32555; 36415; 36600; 71045; 71250-TC; 80053; 82803-TC; 82947-TC; 83605; 83735-TC; 83880; 84100-TC; 84157-TC; 84484; 85025; 85379; 85610-TC; 85651-TC; 85730-TC; 86140; 87040-TC; 87070-TC; 87081; 87116; 88108; 88305; 88313; 89051-TC; 89060-TC; 93005; 94640; 94660; 94760; 96365; 96375; 99285; C1729; C1750; C9113; G0378; J1030; J1940; J2001; J2250; J2270; J2543; J2704; J2930; J3475; J7030; J7050; J7060; J7613; J7620; J7626